=== PATIENT | female | born 1975 | race Caucasian/White ===

== ENCOUNTER → 2020-02-08 12:29 | Outpatient (BNVA) | payer OTHER, MEDICAID, SELFPAY | PROVIDERS: PCP Family Medicine; Visit Provider Physician Assistant | DX: M17.12 Unilateral primary osteoarthritis, left knee (principal) | CPT/HCPCS: 20610; J7318 ==

== ENCOUNTER → 2020-03-27 11:10 | Outpatient (BNVA) | payer OTHER, MEDICAID, SELFPAY | PROVIDERS: PCP Family Medicine; Visit Provider Physician Assistant | DX: M17.12 Unilateral primary osteoarthritis, left knee (principal) | CPT/HCPCS: 20610; J1040 ==

== ENCOUNTER 2021-01-16 15:53 | Outpatient (REF) | payer OTHER, MEDICAID, SELFPAY ==
--- NOTE | ~2021-01-16 | MM_ITS ---
EXAMINATION: MM SCREENING DIGITAL BREAST TOMOSYNTHESIS, BILATERAL CLINICAL INFORMATION: Screening. Asymptomatic. The lifetime risk of breast cancer based on the Tyrer-Cuzick Model is 7%. COMPARISON: Mammography: 01/10/2020, 10/15/2016, 09/13/2015 TECHNIQUE: Digital breast tomosynthesis is performed in both the craniocaudal and mediolateral oblique views along with computer-aided detection (CAD). Synthesized 2D images are generated from the tomosynthesis. FINDINGS: The breasts are almost entirely fatty (ACR BI-RADS breast composition Category a). There are no significant masses, abnormal calcifications, or other abnormalities. Background stromal and minor fibroglandular densities are stable. The axilla and skin contours are unremarkable. MM/MM tomosynthesis screening BI IMPRESSION: There are no significant changes from prior study. ASSESSMENT: BI-RADS 1: Negative RECOMMENDATION: Routine annual mammography screening. This patient's information was entered into a reminder system with a target due date for their next mammogram.
== END 2021-01-16 15:54 | disposition home or self-care (01) ==
LOC: HO.MAMMO 15:53
PROVIDERS: PCP Family Medicine; Visit Provider Family Medicine
DX: Z12.31 Encounter for screening mammogram for malignant neoplasm of breast (principal)
CPT/HCPCS: 77063; 77067

== ENCOUNTER 2022-05-21 07:48 | Outpatient (REF) | payer OTHER, MEDICAID, SELFPAY ==
[2022-05-21 18:56] LABS: CT PCR NOT DETECTED (Not Detect.); NG PCR NOT DETECTED (Not Detect.)
[2022-05-22 13:46] LABS: BV Int Neg Control Negative (Negative); BV Int Pos Control Positive (Positive)
[2022-05-24 03:18] LABS: HPV mRNA E6/E7 rflx Not Detected (Not Detected)
== END 2022-05-21 07:49 | disposition home or self-care (01) ==
LOC: HO.LNP 07:48
PROVIDERS: PCP Family Medicine; Visit Provider Obstetrics & Gynecology
DX: Z01.411 Encounter for gynecological examination (general) (routine) with abnormal findings (principal); Z11.51 Encounter for screening for human papillomavirus (HPV); R10.2 Pelvic and perineal pain; R31.29 Other microscopic hematuria
CPT/HCPCS: 0353U; 87086; 87480; 87510; 87624; 87660; 88142

== ENCOUNTER 2022-06-02 07:39 | Outpatient (REF) | payer OTHER, MEDICAID, SELFPAY ==
[2022-06-02 09:14] LABS: HBsAGNum1 0.25 S/CO (0.00-0.99); HIV AB/AG Nonreactive (Nonreactive); HIV Num 1 0.05 S/CO (0.00-0.99); Hepatitis B Surface Antigen Negative (Negative); Syphilis Screen Nonreactive (Nonreactive); ~HepC Num1 0.16 S/CO (0.00-0.79); ~Hepatitis C Antibody Nonreactive (Nonreactive)
== END 2022-06-02 07:40 | disposition home or self-care (01) ==
LOC: HO.LAB 07:39
PROVIDERS: PCP Family Medicine; Visit Provider Obstetrics & Gynecology
DX: R10.2 Pelvic and perineal pain (principal)
CPT/HCPCS: 36415; 86780; 86803; 87340; 87389

== ENCOUNTER → 2022-06-04 07:50 | Outpatient (BNVA) | payer OTHER, MEDICAID, SELFPAY | PROVIDERS: PCP Family Medicine; Visit Provider Obstetrics & Gynecology | DX: Z13.89 Encounter for screening for other disorder (principal) ==

== ENCOUNTER 2022-06-19 15:41 | Outpatient (REF) | payer OTHER, MEDICAID, SELFPAY ==
--- NOTE | ~2022-06-19 | CT_ITS ---
EXAMINATION: CT ABDOMEN AND PELVIS WITHOUT AND WITH CONTRAST CLINICAL INFORMATION: Microscopic hematuria. COMPARISON: CT abdomen pelvis 03/10/2014 TECHNIQUE: Multidetector volumetric imaging was performed of the abdomen and pelvis before and after the IV administration of 85 mL of Omnipaque 350 intravenous contrast. Sagittal and coronal reformatted images were obtained on the technologist's workstation. This CT examination was performed using dose optimization techniques as appropriate, variously including the following: *Automated exposure control *Adjustment of mA and/or kV according to patient size (this includes techniques or standardized protocols for targeted exams where dose is matched to indication/reason for exam; i.e. extremities or head) *Use of iterative reconstruction technique DLP: 1700 mGy-cm FINDINGS: LUNG BASES: The visualized lung bases are unremarkable. LIVER, GALLBLADDER, AND BILIARY TREE: There is diffuse low attenuation of liver parenchyma due to fatty change. Liver is enlarged. Right lobe of liver measuring 24 cm superior-inferior. No focal liver lesion or intrahepatic bile duct dilatation. Status post cholecystectomy. PANCREAS: Unremarkable SPLEEN: Spleen mildly enlarged measuring 14 cm. ADRENAL GLANDS: Unremarkable KIDNEYS AND URETERS: Right kidney: Mild hydronephrosis of right kidney. There is mild hydroureter of the proximal right ureter. The right ureter is compressed by the enlarged uterus at the right side of the pelvis causing mild hydronephrosis. There is a 1 mm stone in the upper pole the right kidney. There is no ureteral stone. There is no renal mass. Left kidney: Cortical cyst lower pole left kidney measuring 1.6 cm. No follow-up imaging is recommended for simple renal cyst. No hydronephrosis. No renal or ureteral calculus. BLADDER: Unremarkable GASTROINTESTINAL TRACT: No acute abnormality. There is no bowel wall thickening /edema. There is no bowel obstruction. There is a moderate volume of stool in the colon. The appendix is normal . The small bowel loops are unremarkable. The stomach is normal. There is no hiatal hernia. ABDOMINAL WALL: No significant hernia is appreciated. LYMPH NODES: Normal VASCULAR: Unremarkable PELVIC VISCERA: Uterus is lobular and enlarged consistent with uterine fibroids. There is a faintly peripherally calcified hypodense mass at the right side of the fundus consistent with fibroid measuring 8 cm. No adnexal abnormality. No fluid in the cul-de-sac. OSSEOUS STRUCTURES: Unremarkable CT/CT abdomen pelvis wo/w IV con IMPRESSION: 1. Mild hydronephrosis of right kidney due to compression of the right ureter by the enlarged uterus at the right side of the pelvis. 2. 1 mm stone upper pole right kidney. No ureteral stone. No renal mass. 3. Hepatosplenomegaly. Diffuse fatty change of liver. 4. Enlarged fibroid uterus. 5. Status post cholecystectomy. Fleischner guidelines were followed.
[2022-06-19] MEDS: iohexoL 350 MG/ML 100 ML INFUS..BTL IV (16:26)
== END 2022-06-19 15:42 | disposition home or self-care (01) ==
LOC: HO.CT 15:41
PROVIDERS: Visit Provider Obstetrics & Gynecology
DX: R31.29 Other microscopic hematuria (principal)
CPT/HCPCS: 74178; Q9967

== ENCOUNTER 2022-06-23 07:42 | Outpatient (REF) | payer OTHER, MEDICAID, SELFPAY ==
--- NOTE | ~2022-06-23 | MM_ITS ---
EXAMINATION: MM SCREENING DIGITAL BREAST TOMOSYNTHESIS, BILATERAL CLINICAL INFORMATION: Screening. Asymptomatic. The lifetime risk of breast cancer based on the Tyrer-Cuzick Model is 4%. COMPARISON: Mammography: 01/16/2021, 01/10/2020, 10/15/2016 TECHNIQUE: Digital breast tomosynthesis is performed in both the craniocaudal and mediolateral oblique views along with computer-aided detection (CAD). Synthesized 2D images are generated from the tomosynthesis. Additional bilateral CC views are provided. FINDINGS: The breasts are almost entirely fatty (ACR BI-RADS breast composition Category a). Background stromal markings are similar to prior studies. No developing density or architectural changes. There are no significant masses, abnormal calcifications, or other abnormalities. The axilla are unremarkable. MM/MM tomosynthesis screening BI IMPRESSION: No mammographic evidence of malignancy. ASSESSMENT: BI-RADS 1: Negative RECOMMENDATION: Routine annual mammography screening. This patient's information was entered into a reminder system with a target due date for their next mammogram.
== END 2022-06-23 07:43 | disposition home or self-care (01) ==
LOC: HO.MAMMO 07:42
PROVIDERS: PCP Family Medicine; Visit Provider Obstetrics & Gynecology
DX: Z12.31 Encounter for screening mammogram for malignant neoplasm of breast (principal)
CPT/HCPCS: 77063; 77067

== ENCOUNTER → 2022-06-26 08:01 | Outpatient (BNVA) | payer OTHER, MEDICAID, SELFPAY | PROVIDERS: Visit Provider Obstetrics & Gynecology | DX: Z13.89 Encounter for screening for other disorder (principal) ==

== ENCOUNTER → 2022-08-08 14:47 | Outpatient (BNVA) | payer OTHER, MEDICAID, SELFPAY | PROVIDERS: PCP Family Medicine; Visit Provider Urology | DX: R31.29 Other microscopic hematuria (principal); N13.30 Unspecified hydronephrosis; N20.0 Calculus of kidney | CPT/HCPCS: 51798 ==

== ENCOUNTER → 2022-09-15 15:16 | Outpatient (BNVA) | payer OTHER, MEDICAID, SELFPAY | PROVIDERS: PCP Family Medicine; Visit Provider Urology | DX: R31.29 Other microscopic hematuria (principal); N13.2 Hydronephrosis with renal and ureteral calculous obstruction | CPT/HCPCS: 52000 ==

== ENCOUNTER 2023-02-05 07:50 | Outpatient (REF) | payer OTHER, MEDICAID, SELFPAY ==
[2023-02-05 09:31] LABS: Alanine Aminotransferase 50 U/L (0-31); Alkaline Phosphatase 96 U/L (39-117); Anion Gap 14 (12-20); Aspartate Amino Transferase 38 U/L (5-31); Bilirubin Total 0.2 mg/dL (0.0-1.0); Blood Urea Nitrogen 9 mg/dL (9-16); Carbon Dioxide 23 mmol/L (22-29); Chloride 103 mmol/L (96-108); Cholesterol 174 mg/dL (<200); Estimated Glomerular Filt Rate > 60; Glucose Random 220 mg/dL (60-115); HDL Cholesterol 33 mg/dL (>40); Potassium 3.9 mmol/L (3.3-5.1); Sodium 136 mmol/L (135-145); Total Protein 7.6 g/dL (6.5-8.0); Triglycerides 428 mg/dL (<150)
[2023-02-05 09:37] LABS: TSH reflex Free T4 2.21 uIU/mL (0.32-4.0)
[2023-02-05 09:41] LABS: Reflex LDLD? Yes
[2023-02-05 09:52] LABS: Vitamin B12 654 pg/mL (200-900)
[2023-02-07 03:09] LABS: LDL Cholesterol Direct 78 mg/dL (<100)
== END 2023-02-05 07:51 | disposition home or self-care (01) ==
LOC: HO.LAB 07:50
PROVIDERS: PCP Family Medicine; Visit Provider Family Medicine
DX: E11.69 Type 2 diabetes mellitus with other specified complication (principal)
CPT/HCPCS: 36415; 80053; 80061; 82607; 82746; 83721; 84443

== ENCOUNTER 2023-02-17 09:51 | Outpatient (REF) | payer OTHER, MEDICAID, SELFPAY ==
--- NOTE | ~2023-02-17 | US_ITS ---
EXAMINATION: US RETROPERITONEAL COMPLETE (RENAL) CLINICAL INFORMATION: Unspecified hydronephrosis. COMPARISON: CT abdomen and pelvis 06/19/2022. TECHNIQUE: Real-time imaging of the kidneys and bladder. Limited visualization due to bowel gas. FINDINGS: RIGHT KIDNEY: 13.7 x 4.0 x 6.6 cm (SAG x AP x TRV). No hydronephrosis. Right renal lower pole 0.3 cm calculus. Renal cortical thickness is normal. Limited visualization. LEFT KIDNEY: 13.8 x 4.5 x 5.9 cm (SAG x AP x TRV). No hydronephrosis. No renal calculi. Renal cortical thickness is normal. Limited visualization. 2.3 x 1.8 x 1.6 cm left renal midpole cyst with benign features. There is no indication for followup imaging. BLADDER: Well distended. Bilateral ureteral jets are demonstrated. Prevoid bladder volume is 200 mL. Postvoid bladder volume is 15.2 mL. US/US retroperitoneal comp IMPRESSION: Right renal 0.3 cm lower pole calculus. No hydronephrosis.
== END 2023-02-17 09:52 | disposition home or self-care (01) ==
LOC: HO.US 09:51
PROVIDERS: PCP Family Medicine; Visit Provider Urology
DX: N13.30 Unspecified hydronephrosis (principal); R31.29 Other microscopic hematuria; N20.0 Calculus of kidney
CPT/HCPCS: 76770

== ENCOUNTER 2023-03-16 15:28 | Outpatient (AMB) | payer OTHER, MEDICAID, SELFPAY ==
--- NOTE | 2023-03-16 15:39 | A.OFFVIS_ITS ---
Intake Intake Visit Reasons: 6m/US Intake Note: Patient presents today for a 6mo follow-up and US Results: Completed on 02/17/2023 Meds- None Allergies to Antibiotic- No Known Allergies Blood Thinner- None Team Lead Required: Yes Information Interpreted: non-clinical & clinical Accompanied by: Self / Same As Patient Allergies acetaminophen [From Percocet] Allergy (Mild, Verified 03/16/23 15:41) Stomach Upset oxycodone [From Percocet] Allergy (Mild, Verified 03/16/23 15:41) Stomach Upset HPI HPI Comments History of Present Illness Details Kandace is a 47-year-old female who presents today to the office for a follow-up. 03/16/2023? She is followed today for US results. She was last seen by me on 09/15/2022 for hydronephrosis, right. She was advised to follow-up in 6 months with a renal US to reevaluate. I discussed renal US results--02/17/2023--US results reviewed ? No Hydronephrosis, 3 mm right kidney stone. Review of charts: Last visit: 09/15/2022-- The patient is scheduled for AIRCRAFT STRUCTURAL FITTER surgery for her fibroid tumor October 30 There is also finding of an abnormality on her ovary that they will be evaluating. I discussed with her that as the uterus is pressing on the right ureter she may need a ureteral stent during the digital specialist procedure that will be facilitated by the digital specialist specialist at [facility] and I will follow-up with them. 09/15/22--Evaluation today-- Blood: 10 Er y/uL, leukocytes: negative; Cytoscopy fi ndings-- normal bladder mucosa. Imaging: CTAP results reviewed--06/19/22-- small renal stone on the right side. 03/16/2023: Plan: Hydronephrosis resolve d. Will monitor the kidney stone Follow-up in one year with renal US. 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 Sexual orientation: Straight/Heterosexual Gender identity: Female Review of Systems Const All systems reviewed & are unremarkable except as noted in HPI and below Reports no additional complaints Eyes Reports no additional complaints ENT Reports no additional complaints Card Denies dyspnea Resp Denies cough and Denies dyspnea GI Reports no additional complaints Reports no additional complaints Musc Reports no additional complaints Skin/Breast Denies rash and Denies unusual bruising Neuro Reports no additional complaints Psych Reports no additional complaints Endo Reports no additional complaints Anton/Lymph Reports no additional complaints Aller/Immun Reports no additional complaints Results AMB Urinalysis, Automated UA Leukoctes 70 Robby/uL Last Edit by GUTIERREZ Jones on 03/16/23 15:50 1+ Awa Cotton 03/16/23 15:50 UA Nitrite Negative Last Edit by GUTIERREZ Jones on 03/16/23 15:50 UA Urobilinogen 0.2 mg/dL Last Edit by GUTIERREZ Jones on 03/16/23 15:5 0 UA Protein 0 mg/dL Last Edit by GUTIERREZ Jones on 03/16/23 15:50 UA pH 6.0 Last Edit by GUTIERREZ Jones on 03/16/23 15:50 UA Blood 0 Sawyer/uL Last Edit by GUTIERREZ Jones on 03/16/23 15:50 UA Specific [place] 1.015 Last Edit by GUTIERREZ Jones on 03/16/23 15: 50 UA Ketone Negative Last Edit by GUTIERREZ Jones on 03/16/23 15:50 UA Bilirubin 0 mg/dL Last Edit by MILAGROS JonesBuck on 03/16/23 15:50 UA Glucose 500 mg/dL Last Edit by Awa Cotton GUTIERREZ on 03/16/23 15:50 2+ Awa Cotton 03/16/23 15:50 Results Reviewed Results Reviewed: Laboratory Last Values Urine pH (Auto) 6.0 03/16/23 15:44 Specific [place] (Auto) 1.015 03/16/23 15:44 Urine Protein (Auto) 0 mg/dL 03/16/23 15:44 Glucose (UA)(Auto) 500 mg/dL 03/16/23 15:44 Urine Ketones (Auto) Negative 03/16/23 15:44 Urine Blood (Auto) 0 Sawyer/uL 03/16/23 15:44 Urine Nitrite (Auto) Negative 03/16/23 15:44 Urine Bilirubin (Auto) 0 mg/dL 03/16/23 15:44 Urine Urobilinogen (Auto) 0.2 mg/dL 03/16/23 15:44 Leukocyte Esterase (Auto) 70 Robby/uL 03/16/23 15:44 Date of Service: 02/17/23 EXAMINATION: US RETROPERITONEAL COMPLETE (RENAL) CLINICAL INFORMATION: Unspecified hydronephrosis. COMPARISON: CT abdomen and pelvis 06/19/2022. FINDINGS: RIGHT KIDNEY: 13.7 x 4.0 x 6.6 cm (SAG x AP x TRV). No hydronephrosis. Right renal lower pole 0.3 cm calculus. Renal cortical thickness is normal. Limited visualization. LEFT KIDNEY: 13.8 x 4.5 x 5.9 cm (SAG x AP x TRV). No hydronephrosis. No renal calculi. Renal cortical thickness is normal. Limited visualization. 2.3 x 1.8 x 1.6 cm left renal midpole cyst with benign features. There is no indication for followup imaging. BLADDER: Well distended. Bilateral ureteral jets are demonstrated. Prevoid bladder volume is 200 mL. Postvoid bladder volume is 15.2 mL. IMPRESSION: Right renal 0.3 cm lower pole calculus. No hydronephrosis. Assessment & Plan Assessment & Plan (1) Right kidney stone: Code(s): N20.0 - Calculus of kidney (2) Hydronephrosis, right: Code(s): N13.30 - Unspecified hydronephrosis Plan We will monitor the kidney stone Follow-up in one year with renal US. Orders: Orders AMB Urinalysis Automated 03/16/23 Z13.9 - Encounter for screening, unspecified Patient Instructions: The patient had an opportunity to ask questions regarding treatment plan. All questions were answered. Imaging, Laboratory studies and physical exam results were discussed and reviewed in detail. No major barriers to understanding were identified. The patient expressed understanding and agreement with the above treatment plan. The patient is aware they should contact our office by phone for worsening of their current condition or the appearance of new symptoms. Compliance is encouraged with any medications and followup testing that is ordered. It is a privilege to be allowed the opportunity to participate in the urologic care of your patient. If you have any questions or concerns regarding treatment for the above conditions please do not hesitate to contact me. The office telephone contact is [phone]. This note is constructed in part using voice recognition software. While every effort has been made to ensure accuracy flight manager errors may have been included. Yours sincerely, Almaz Blancas MD Coding Level of Care Code Est Pt Level 4 (45072) Diagnoses Right kidney stone N20.0 Hydronephrosis, right N13.30
== END 2023-03-16 16:00 | disposition home or self-care (01) ==
PROVIDERS: Visit Provider Urology
DX: N20.0 Calculus of kidney (principal); N13.30 Unspecified hydronephrosis
CPT/HCPCS: 99214

== ENCOUNTER → 2023-03-16 15:28 | Outpatient (BNVA) | payer OTHER, MEDICAID, SELFPAY | PROVIDERS: Visit Provider Urology | DX: N20.0 Calculus of kidney (principal) | CPT/HCPCS: 81003 ==

== ENCOUNTER 2023-04-16 07:33 | Outpatient (REF) | payer OTHER, MEDICAID, SELFPAY ==
[2023-04-16 09:29] LABS: Creatinine Urine 110.45 mg/dL; Microalbum/Creatinine Ratio Ur 14.4 ug/mg cr (<30)
== END 2023-04-16 07:34 | disposition home or self-care (01) ==
LOC: HO.LAB 07:33
PROVIDERS: PCP Family Medicine; Visit Provider Family Medicine
DX: E11.65 Type 2 diabetes mellitus with hyperglycemia (principal)
CPT/HCPCS: 82043; 82570

== ENCOUNTER 2023-04-20 08:00 | Outpatient (REF) | payer OTHER, MEDICAID, SELFPAY ==
[2023-04-24 11:29] LABS: Cortisol Free, 24 Hr Urine 4.8 mcg/24 h (4.0-50.0); Total Volume, 24 Hr Urine 2975 mL
== END 2023-04-20 08:01 | disposition home or self-care (01) ==
LOC: HO.LNP 08:00
PROVIDERS: Visit Provider Family Medicine
DX: E24.9 Cushing's syndrome, unspecified (principal); R73.9 Hyperglycemia, unspecified
CPT/HCPCS: 82530

== ENCOUNTER 2023-05-25 07:57 | Outpatient (AMB) | payer OTHER, MEDICAID, SELFPAY ==
[2023-05-25 07:58] VITALS: BP 116/72; BMI 37.9
--- NOTE | 2023-05-25 07:58 | A.OFFVIS_ITS ---
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 Intake Note: no concerns Heel Top Lift Splitter Required: Yes Heel Top Lift Splitter Language: Room Maid Name: Gracie WHITLEY Information Interpreted: non-clinical & clinical Assistant Professor Of Anthropology: Assistant Professor Of Anthropology Present (Gracie WHITLEY) Accompanied by: Self / Same As Patient Allergies acetaminophen [From Percocet] Allergy (Mild, Verified 05/25/23 08:03) Stomach Upset oxycodone [From Percocet] Allergy (Mild, Verified 05/25/23 08:03) Stomach Upset Is last menstrual period known: No (hysterectomy) HPI HPI Comments History of Present Illness0 Details Presenting for annual exam. No complaints. 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 Sexual orientation: Straight/Heterosexual Gender identity: Female Female Reproductive History Menstrual Menopause type: surgical Total pregnancies: 2 Full term: 2 Number of Living Children: 2 Date of last pap smear: 05/21/22 Date of Mammogram: 06/23/22 Review of Systems Const All systems reviewed & are unremarkable except as noted in HPI and below Card Reports as per HPI and Reports no additional complaints Resp Reports as per HPI and Reports no additional complaints GI Reports as per HPI and Reports no additional complaints Reports as per HPI Physical Exam Vital Signs: BMI result Body Mass Index 37.9 Const General: cooperative, healthy appearing and comfortable General: Yes bladder normal to palpation External Female Exam: No lesion Speculum Exam - Vagina: normal appearance of the vagina, normal vaginal discharge and not erythematous Speculum Exam - Cervix: Cervix absent Bimanual exam- vagina & uterus: bladder normal to palpation and uterus absent Bimanual Exam- Adnexa, other: Other (No masses detected) Assessment & Plan Assessment & Plan (1) Well woman exam: Code(s): Z01.419 - Encounter for gynecological examination (general) (routine) without abnormal findings Plan: Co testing not indicated , the patient has no history of abnormal Pap smears, the patient is status post hysterectomy for myomas. Counseled the patient about the recommended dietary allowance of 1200 mg of Calcium & 600 IU of vitamin D. Mammogram ordered. The patient was referred to GI for screening colonoscopy . The patient was instructed to perform monthly self-breast exams and schedule annual exam in a year. All questions answered and the patient verbalized understanding. Orders: Orders MM tomosynthesis screening BI Today Z12.31 - Encounter for screening mammogram for malignant neoplasm of breast Referrals Gastroenterology Referral Z12.11 - Encounter for screening for malignant sujatha plasm of colon Coding Level of Care Code Est Pt Prev Care 40-64y(99507) Diagnoses Well woman exam Z01.419
== END 2023-05-25 08:15 | disposition home or self-care (01) ==
PROVIDERS: Visit Provider Obstetrics & Gynecology
DX: Z01.419 Encounter for gynecological examination (general) (routine) without abnormal findings (principal)
CPT/HCPCS: 99396

== ENCOUNTER → 2023-05-25 07:57 | Outpatient (BNVA) | payer OTHER, MEDICAID, SELFPAY | PROVIDERS: Visit Provider Obstetrics & Gynecology ==

== ENCOUNTER 2023-06-29 07:58 | Outpatient (REF) | payer OTHER, MEDICAID, SELFPAY | END 2023-06-29 07:59 | disposition home or self-care (01) | LOC: HO.MAMMO 07:58 | PROVIDERS: PCP Family Medicine; Visit Provider Family Medicine | DX: Z12.31 Encounter for screening mammogram for malignant neoplasm of breast (principal) | CPT/HCPCS: 77063; 77067 ==

== ENCOUNTER → 2023-06-29 08:15 | Outpatient (BNV) | payer OTHER, MEDICAID, SELFPAY | PROVIDERS: PCP Family Medicine; Visit Provider Radiology Diagnostic Radiology | DX: Z12.31 Encounter for screening mammogram for malignant neoplasm of breast (principal) | CPT/HCPCS: 77063; 77067 ==

== ENCOUNTER 2023-08-04 08:15 | Outpatient (AMB) | payer OTHER, MEDICAID, SELFPAY ==
--- NOTE | 2023-08-04 08:19 | MHC.OFFVIS ---
Intake Vital Signs 08/04/23 08:29 Height 5 ft Weight 178 lb 9.191 oz BMI 34.9 BP 115/63 Blood Pressure Location Lt brachial Position Sitting Pulse 81 Intake Visit Reasons: colonoscopy screening Intake Note: Suma presents in the office as a new patient colonoscopy screening. CC: No concerns just here for a colonoscopy. Allergies acetaminophen [From Percocet] Allergy (Mild, Verified 08/04/23 08:29) Stomach Upset oxycodone [From Percocet] Allergy (Mild, Verified 08/04/23 08:29) Stomach Upset HPI colonoscopy screening HPI Details 48 year old? female here today for pre colonoscopy screening.? Patient had colonoscopy in 2014 as well as upper endoscopy. No polyps found. Patient was diagnosed with gastritis and was started on PPI. Patient has been on PPI ever since. Currently she is on pantoprazole 40 mg daily. Her symptoms for the most part are suppressed. Patient denies any gastrointestinal symptoms in the past or at present.? However patient does admit to have occasional constipation. Patient states that if she drinks water and takes MiraLax she moves her bowels well. Denies any personal or family history of gastrointestinal disease, colon polyps, or cancer.? Denies history of difficulty with sedation or anesthesia in the past.? History of sleep apnea uses CPAP.? Denies any history of cardiac, renal, pulmonary, or hepatic disease.?? No history of infectious? diseases like hepatitis A, B, C, HIV or tuberculosis.? Patient is not on any anticoagulation therapy. 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 Sexual orientation: Straight/Heterosexual Gender identity: Female Review of Systems Const Denies weight gain and Denies weight loss ENT Reports no additional complaints, Denies dysphagia and Denies odynophagia Card Reports no additional complaints Resp Reports no additional complaints GI Denies abdominal pain, Denies belching, Denies melena, Denies bloating, Denies change in bowel habits, Denies dysphagia, Denies excessive flatus, Denies dyspepsia, Denies heartburn, Denies diarrhea, Denies loose stools, Denies nausea, Denies odynophagia and Denies vomiting Musc Reports no additional complaints Neuro Reports no additional complaints Psych Reports no additional complaints Endo Reports no additional complaints Physical Exam Vital Signs: Last Vital Signs Pulse 81 08/04/23 08:29 BP 115/63 08/04/23 08:29 BMI result Body Mass Index 34.9 Const General: healthy appearing, no acute distress and well developed Nutritional Appearance: well nourished Orientation/consciousness: patient oriented x3 Resp Effort & Inspection: normal respiratory effort, able to speak in complete sentences, no tracheal deviation and symmetric chest movement Auscultation: clear to auscultation bilaterally Cardio Rate: regular rate GI Inspection: Yes normal to inspection and No distended Palpation (GI): Soft to palpation, not firm, nontender and No hepatosplenomegaly present Auscultation: normal bowel sounds General: Yes no CVA tenderness Back/Spine/Pelvis Back: no CVA tenderness Skin General skin exam: elasticity normal, turgor normal and dry skin Neuro General: patient oriented x3 Psych Appearance: grossly normal Mental Status: mental status grossly normal Assessment & Plan Assessment & Plan (1) Screen for colon cancer: Code(s): Z12.11 - Encounter for screening for malignant neoplasm of colon (2) GERD (gastroesophageal reflux disease): Code(s): K21.9 - Gastro-esophageal reflux disease without esophagitis Qualifiers: Esophagitis presence: esophagitis presence not specified Qualified Code(s): K21.9 - Gastro-esophageal reflux disease without esophagitis (3) Constipation: Code(s): K59.00 - Constipation, unspecified Qualifiers: Constipation type: slow transit constipation Qualified Code(s): K59.01 - Slow transit constipation Plan Patient denies any cardiac or respiratory symptoms. Occasional constipation, uses MiraLax and drinks more water. Patient was encouraged to increase fluid intake and activity to promote better bowel motility. Patient will take Dulcolax every evening for 1 week before procedure with 4 tablets day before at noon and split MiraLax prep. ?Patient is on pantoprazole. Long history of PPI use will send her for upper endoscopy. Patient occasionally will have acid reflux, however for the most part her symptoms are suppressed. Denies any issues with anesthesia in the past.? History of sleep apnea using CPAP.? No history infectious diseases in the past or present.? Not on any anticoagulation therapy.? No family or personal history of colon cancer or polyps.? Patient denies melena, hematochezia, unintentional weight loss or ribbon like stools.? Discussed at length the pre-procedure,? prep, diet & medications as well as what to expect prior, during and after the procedure.?? Stressed the importance of good bowel prep. ?Recommended the use of Vaseline or Calmoseptine OTC & baby wipes with bowel movements to promote comfort.? ?Patient verbalizes understanding and agrees to plan of care.? She was given the opportunity to ask questions and all questions answered.? We will see her after the procedure.? Medications: New bisacodyl (Dulcolax (bisacodyl)) Start taking 2 tablet every night 7 days before the procedure and 1 day before procedure take 4 tablets at noon time followed by MiraLax prep 10 mg (2 x 5 mg) PO BEDTIME 16 tabs 0RF Z12.11 - Encounter for screening for malignant neoplasm of colon polyethylene glycol 3350 (Miralax) As directed by gastroenterology department at [facility] 238 grams PO ONCE 238 grams 0RF Z12.11 - Encounter for screening for malignant neoplasm of colon Coding Level of Care Code New Pt Level 3 (58704) Diagnoses Screen for colon cancer Z12.11 Gastroesophageal reflux disease, unspecified whether esophagitis present K21.9 Esophagitis presence: esophagitis presence not specified Slow transit constipation K59.01 Constipation type: slow transit constipation Time Spent (min) 40 Comment 30 minutes spent with patient and additional 10 minutes spent reviewing her records
[2023-08-04 08:29] VITALS: BP 115/63; PULSE 81; BMI 34.9
== END 2023-08-04 08:56 | disposition home or self-care (01) ==
PROVIDERS: PCP Family Medicine; Visit Provider Nurse Practitioner Family
DX: K21.9 Gastro-esophageal reflux disease without esophagitis (principal); K59.01 Slow transit constipation; Z12.11 Encounter for screening for malignant neoplasm of colon
CPT/HCPCS: 99203

== ENCOUNTER → 2023-08-04 08:15 | Outpatient (BNVA) | payer OTHER, MEDICAID, SELFPAY | PROVIDERS: PCP Family Medicine; Visit Provider Nurse Practitioner Family ==

== ENCOUNTER 2024-02-11 14:48 | Outpatient (REF) | payer OTHER, MEDICAID, SELFPAY | END 2024-02-11 14:49 | disposition home or self-care (01) | LOC: HO.US 14:48 | PROVIDERS: PCP Family Medicine; Visit Provider Urology | DX: N20.0 Calculus of kidney (principal) | CPT/HCPCS: 76775 ==

== ENCOUNTER 2024-02-13 10:35 | Outpatient (REF) | payer OTHER, MEDICAID, SELFPAY ==
[2024-02-13 10:45] LABS: MANUAL DIFF FLAG NO
[2024-02-13 11:01] LABS: Basophils Absolute Auto 0.1 X10*3/uL (0.0-0.2); Basophils Percent Auto 1.2 % (0-2); Eosinophils Absolute Auto 0.1 X10*3/uL (0.0-0.4); Hematocrit 40.9 % (37.0-47.0); Hemoglobin 13.4 g/dl (12.0-16.0); Imm Gran Abs Auto 0.03 X10*3/uL (0.00-0.03); Imm Gran Pct Auto 0.4 % (0.0-0.4); Lymphocytes Absolute Auto 2.8 X10*3/uL (1.2-4.9); Lymphocytes Percent Auto 40.3 % (20-40); Mean Corpuscular HGB Conc 32.8 g/dl (31.0-35.0); Mean Corpuscular Hemoglobin 26.1 pg (27.0-33.0); Mean Corpuscular Volume 79.7 fL (80.0-98.0); Mean Platelet Volume 9.4 fL (9.4-12.3); Monocytes Absolute Auto 0.4 X10*3/uL (0.1-1.2); Monocytes Percent Auto 5.9 % (2-11); Neutrophils Absolute Auto 3.5 x10*3/uL (2.0-8.3); Neutrophils Percent Auto 50.2 % (45-73); Platelet Count 296 X10*3/uL (160-400); Red Blood Count 5.13 X10*6/uL (4.20-5.50); White Blood Count 6.9 X10*3/uL (4.8-10.8)
[2024-02-13 11:51] LABS: Alanine Aminotransferase 16 U/L (0-31); Albumin Level 3.8 g/dL (3.5-5.0); Alkaline Phosphatase 79 U/L (39-117); Anion Gap 11 (12-20); Aspartate Amino Transferase 17 U/L (5-31); Bilirubin Total 0.3 mg/dL (0.0-1.0); Blood Urea Nitrogen 15 mg/dL (9-16); Calcium 9.4 mg/dL (8.4-10.2); Carbon Dioxide 25 mmol/L (22-29); Chloride 107 mmol/L (96-108); Cholesterol 201 mg/dL (<200); Estimated Glomerular Filt Rate > 60; Glucose Random 130 mg/dL (60-115); HDL Cholesterol 40 mg/dL (>40); LDL Cholesterol Calculated 116 mg/dL (<100); Potassium 3.8 mmol/L (3.3-5.1); Sodium 139 mmol/L (135-145); Total Protein 6.9 g/dL (6.5-8.0); Triglycerides 228 mg/dL (<150)
[2024-02-13 11:52] LABS: Creatinine Urine 123.69 mg/dL; Microalbum/Creatinine Ratio Ur 11.3 ug/mg cr (<30)
[2024-02-13 12:08] LABS: TSH reflex Free T4 1.27 uIU/mL (0.32-4.0)
[2024-02-13 12:14] LABS: Folate 9.1 ng/mL (> or = 4.0); Vitamin B12 460 pg/mL (200-900)
[2024-02-13 12:49] LABS: Reflex LDLD? No
== END 2024-02-13 10:36 | disposition home or self-care (01) ==
LOC: HO.LAB 10:35
PROVIDERS: PCP Family Medicine; Visit Provider Family Medicine
DX: E11.69 Type 2 diabetes mellitus with other specified complication (principal); E11.65 Type 2 diabetes mellitus with hyperglycemia; K76.0 Fatty (change of) liver, not elsewhere classified; I10 Essential (primary) hypertension; E66.09 Other obesity due to excess calories; E78.1 Pure hyperglyceridemia; E78.5 Hyperlipidemia, unspecified; R74.01 Elevation of levels of liver transaminase levels; Z98.84 Bariatric surgery status
CPT/HCPCS: 36415; 80053; 80061; 82043; 82570; 82607; 82746; 84443; 85025

== ENCOUNTER 2024-03-16 14:58 | Outpatient (AMB) | payer OTHER, MEDICAID, SELFPAY ==
--- NOTE | 2024-03-16 14:59 | A.OFFVIS_ITS ---
Intake Visit Reasons: 1y/US(US pending) Intake Note: Patient presents today for a 1Y follow-up/US Meds- None Allergies to Antibiotic- No Known Allergies Blood Thinner- None Public Works Supervisor Required: Yes Information Interpreted: non-clinical & clinical Accompanied by: Self / Same As Patient Allergies acetaminophen [From Percocet] Allergy (Mild, Verified 03/16/24 15:00) Stomach Upset oxycodone [From Percocet] Allergy (Mild, Verified 03/16/24 15:00) Stomach Upset HPI Comments Details: 03/17/24--Kandace is a 47-year-old female who presents today Telehealth follow- up. Reviewed renal US--02/11/24--Previously seen right lower pole calculus is not seen on the current study. Review of charts: 03/16/2023? She is followed today for US results. She was last seen by me on 09/15/2022 for hydronephrosis, right. She was advised to follow-up in 6 months with a renal US to reevaluate. I discussed renal US results--02/17/2023--US results reviewed ? No Hydronephrosis, 3 mm right kidney stone. Last visit: 09/15/2022-- The patient is scheduled for TRANSITION ASSISTANT surgery for her fibroid tumor October 30 There is also finding of an abnormality on her ovary that they will be evaluating. I discussed with her that as the uterus is pressing on the right ureter she may need a ureteral stent during the leather goods sales representative procedure that will be facilitated by the leather goods sales representative specialist at [facility] and I will follow-up with them. 09/15/22--Evaluation today-- Blood: 10 Sawyer/uL, leukocytes: negative; Cytoscopy findings-- normal bladder mucosa. Imaging: CTAP results reviewed--06/19/22-- small renal stone on the right side. 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 Sexual orientation: Straight/Heterosexual Gender identity: Female Telehealth Telehealth Telehealth Platform: Telephone Location of provider rendering services: practice address Location of patient: address on file Patient Identification confirmed using: Name, : Yes Telehealth method: voice only Patient verbally consented to treatment: Yes Patient verbally consented to billing insurance company: Yes Patient informed of any privacy concerns related to visit: Yes Minutes spent on Phone/Video with Pt.: 14 Results Reviewed Results Reviewed: Date of Service: 02/11/24 US RETROPERITONEAL LIMITED (RENAL ONLY) CLINICAL INFORMATION: Calculus of kidney. COMPARISON: Ultrasound retroperitoneal 02/17/2023. CT abdomen and pelvis 06/19/2022. TECHNIQUE: Real-time imaging of the kidneys. FINDINGS: RIGHT KIDNEY: 12.4 x 5.0 x 5.3 cm (SAG x AP x TRV). The kidney is normal in size, contour, and echogenicity. Renal cortical thickness is normal. No calculi or focal parenchymal lesions. Previously seen calculi in the lower pole at the time of the prior ultrasound is not seen on the current study. No hydronephrosis. LEFT KIDNEY: 12.1 x 4.9 x 5.6 cm (SAG x AP x TRV). The kidney is normal in size, contour, and echogenicity. Renal cortical thickness is normal. No renal calculi or hydronephrosis. A benign lower pole 1.7 cm Bosniak class I renal cyst is again noted which requires no additional imaging or follow up. No solid renal masses are seen. IMPRESSION: Negative exam. Previously seen right lower pole calculus is not seen on the current study. Date of Service: 02/17/23 EXAMINATION: US RETROPERITONEAL COMPLETE (RENAL) CLINICAL INFORMATION: Unspecified hydronephrosis. COMPARISON: CT abdomen and pelvis 06/19/2022. FINDINGS: RIGHT KIDNEY: 13.7 x 4.0 x 6.6 cm (SAG x AP x TRV). No hydronephrosis. Right renal lower pole 0.3 cm calculus. Renal cortical thickness is normal. Limited visualization. LEFT KIDNEY: 13.8 x 4.5 x 5.9 cm (SAG x AP x TRV). No hydronephrosis. No renal calculi. Renal cortical thickness is normal. Limited visualization. 2.3 x 1.8 x 1.6 cm left renal midpole cyst with benign features. There is no indication for followup imaging. BLADDER: Well distended. Bilateral ureteral jets are demonstrated. Prevoid bladder volume is 200 mL. Postvoid bladder volume is 15.2 mL. IMPRESSION: Right renal 0.3 cm lower pole calculus. No hydronephrosis. Assessment & Plan Assessment & Plan (1) Hydronephrosis, right: Comment: resolved Code(s): N13.30 - Unspecified hydronephrosis Category: Medical (2) History of kidney stones: Code(s): Z87.442 - Personal history of urinary calculi Category: Medical Plan Will monitor kidneys. Follow-up in one year with renal US. Patient Instructions: The patient had an opportunity to ask questions regarding treatment plan. The patient expressed understanding and agreement with the above treatment plan. The patient is aware they should contact our office by phone for worsening of their current condition or the appearance of new symptoms. Compliance is encouraged with any medications and followup testing that is ordered. It is a privilege to be allowed the opportunity to participate in the urologic care of your patient. If you have any questions or concerns regarding treatment for the above conditions please do not hesitate to contact me. The office telephone contact is [phone]. This note is constructed in part using voice recognition software. While every effort has been made to ensure accuracy dispatcher chief oil errors may have been included. Yours sincerely, Almaz Blancas MD Coding Level of Care Code Tele Est Pt Level 3 (27252) Diagnoses Hydronephrosis, right N13.30 History of kidney stones Z87.442
== END 2024-03-16 16:30 | disposition home or self-care (01) ==
LOC: HO.HUSH 14:58
PROVIDERS: PCP Family Medicine; Visit Provider Urology
DX: N13.30 Unspecified hydronephrosis (principal); Z87.442 Personal history of urinary calculi
CPT/HCPCS: 99442

== ENCOUNTER → 2024-07-06 07:45 | Outpatient (BNV) | payer OTHER, MEDICAID, SELFPAY | PROVIDERS: PCP Family Medicine; Visit Provider Internal Medicine | DX: Z12.31 Encounter for screening mammogram for malignant neoplasm of breast (principal) | CPT/HCPCS: 77063; 77067 ==

== ENCOUNTER 2024-07-06 07:49 | Outpatient (REF) | payer OTHER, MEDICAID, SELFPAY ==
--- OUTSIDE RECORDS SUMMARY | 2024-07-06 07:53 | XMS_ITS | Encounter Summary ---
Author Organization [employer] Address [address] [place] [address] Care Team Providers Care 911 Operator Name Role Phone Lulú Painting MD Primary Care Provider [phone] Encounter Details Date Type Department Care Team (Late st Contact Info) Description 02/06/2023 Orders Only [facility] MEDICINE [address] [place], [place] [phone] Lulú Painting MD [address] [place], [place] [phone] Dyslipidemia (Primary Dx) Social History Tobacco Use Types Packs/Day Years Used Date Smoking Tobacco: Never Passive Smoke Exposure: Never Smokeless Tobacco: Never Depression Answer Date Recorded Patient Health Questionnaire-9 Score 7 04/17/2022 Housing Stability Answer Date Recorded What is your housing situation today? I have ernst jara 02/09/[address] you li ve. Do you have problems with any of the following? None of the above 02/09/2023 Food Insecurity Answer Date Recorded Within the past 12 months, y ou worried that your food would run out before you got money to buy more: Never True 02/09/2023 Within the past 12 months,th e food you bought just didn't last and you didn't have enough money to get more: Never True 01/2023 Transportation Answer Date Recorded In the past 12 months, has l ack of transportation kept you from medical appts, meetings, work or from getting things needed for daily living? No 02/09/2023 Utilities Answer Date Recorded In the past 12 months, has t he electric, gas, oil or water company threatened to shut off services in your home? No 02/09/2023 Depression Answer Date Recorded Patient Health Questionnaire-2 Score 3 04/17/2022 Comments Unknown Sex and Gender Information Value Date Recorded Sex Assigned at Female 03/03/2022 10:18 AM EDT Legal Sex Female 10:18 AM EDT Gender Identity Female 03/03/2022 10:18 AM EDT Sexual Orientation Straight 03/03/2022 10 :18 AM EDT documented as of this encounter Plan of Treatment Scheduled Orders Name Type Priority Associated Diagnoses Orde r Schedule Lipid Panel with Reflex to Direct LDL Lab Routine Dyslipidemia Expected: 05/09/2023, Expires: 02/07/2024 Hepatic Function Panel Lab Routine Dyslipidemia Expected: 05/09/2023, Expires: 02/07/2024 documented as of this encounter Visit Diagnoses Diagnosis Dyslipidemia- Primary Other and unspecified hyperlipidemia documented in this encounter Additional Health Concerns Assessment Noted Time PHQ-9 Depression Total Score: 7 04/17/20 22 9:30 AM EST documented as of this encounter Care Teams 911 Operator Relationship Specialty Start Date End Date Lulú Painting MD [address] [place] [address] PCP - General Family Medicine 11/18/13 documented as of this encounter
--- OUTSIDE RECORDS SUMMARY | 2024-07-06 07:53 | XMS_ITS | Clinical Summary ---
Author Organization [facility] it[facility] Address [address] [place] [address] Care Team Providers Care Senior Finance Manager Name Role Phone Unavailable Primary Care Provider Unavailabl e Surgical History Surgery Date Site/Laterality Comments TUBAL LIGATION PROCEDURE: HISTORICAL TUBAL LIGATION Social History Tobacco Use Types Packs/Day Years Used Date Smoking Tobacco: Never Smokeless Tobacco: Never Alcohol Use Standard Drinks/Week Comments No 0 (1 standard drink = 0.6 oz pur e alcohol) Comments Unknown Sex and Gender Information Value Date Recorded Sex Assigned at Not on file Legal Sex Female 2:34 PM EST Gender Identity Not on file Sexual Orientation Not on file Obstetrics History Last Filed Vital Signs Vital Sign Reading Time Taken Comments Blood Pressure - - Pulse - - Temperature - - Respiratory Rate - - Oxygen Saturation - - Inhaled Oxygen Concentration - - Weight 93.4 kg (206 lb) 12/16/2022 2:27 PM EDT Height 152.4 cm (5') 12/16/2022 2:27 PM EDT Body Mass Index 40.23 12/16/2022 2:27 PM EDT Plan of Treatment Health Maintenance Due Date Last Done Comments Breast Cancer Screening 1973 DTaP,Tdap,and Td Vaccines (1 - Tdap) 1992 Hepatitis B Vaccines (1 of 3 - 19+ 3-dose series) 1992 Cervical Cancer Screening: P ap Smear 1994 Colorectal Cancer Screening: Colonoscopy 06/03/2023 Depression Screening 06/03/2023 HIV Screening 06/03/2023 Hepatitis C Screening 06/03/2023 Social Influencers of Health Screening 06/03/2023 Pneumococcal Vaccine: 50+ Ye ars (1 of 1 - PCV) 07/19/2023 Zoster Vaccines (1 of 2) 07/19/2023 COVID-19 Vaccine (2023-2 5 season) 2024 Influenza Vaccine (#1) 2024 HIB Vaccines Aged Out No longer eligi ble based on patient's age to complete this topic HPV Vaccines Aged Out No longer eligi ble based on patient's age to complete this topic Hepatitis A Vaccines Aged Out No long er eligible based on patient's age to complete this topic IPV Vaccines Aged Out No longer eligi ble based on patient's age to complete this topic MMR Vaccines Aged Out No longer eligi ble based on patient's age to complete this topic Meningococcal ACWY Vaccine Aged Out N o longer eligible based on patient's age to complete this topic Meningococcal B Vacine Aged Out No lo nger eligible based on patient's age to complete this topic Pneumococcal Vaccine: Pediat rics (0 to 5 Years) and At-Risk Patients (6 to 64 Years) Aged Out No longer eligible b ased on patient's age to complete this topic RSV Immunization Patients Un raheem 20 months Aged Out No longer eligible b ased on patient's age to complete this topic Varicella Vaccines Aged Out No longer eligible based on patient's age to complete this topic
--- OUTSIDE RECORDS SUMMARY | 2024-07-06 07:53 | XMS_ITS | Encounter Summary ---
Author Organization [employer] Address [address] [place] [address] Care Team Providers Care Supply Tech Name Role Phone Lulú Painting MD Primary Care Provider [phone] Reason for Visit * Reason Onset Date Comments chart prep 06/16/2024 Encounter Details Date Type Department Care Team ([facility] st Contact Info) Description 06/16/2024 Telephone [facility] MEDICINE [address] [place] [address] Roseline Seals MA chart prep Social History Tobacco Use Types Packs/Day Years Used Date Smoking Tobacco: Never Passive Smoke Exposure: Never Smokeless Tobacco: Never Depression Answer Date Recorded Patient Health Questionnaire-9 Score 18 02/01/2024 Patient Health Questionnaire-9 Score 18 02/01/2024 Last PHQ-9: Questionnaire Data Not on file 0 02/01/2024 Housing Stability Answer Date Recorded What is your housing situation today? I have ernst jara 02/17/[address] you li ve. Do you have problems with any of the following? None of the above 02/17/2023 Food Insecurity Answer Date Recorded Within the past 12 months, y ou worried that your food would run out before you got money to buy more: Sometimes True 2023 Within the past 12 months,th e food you bought just didn't last and you didn't have enough money to get more: Sometimes True 07/13/2023 Transportation Answer Date Recorded In the past 12 months, has l ack of transportation kept you from medical appts, meetings, work or from getting things needed for daily living? No 02/17/2023 Utilities Answer Date Recorded In the past 12 months, has t he electric, gas, oil or water company threatened to shut off services in your home? No 02/17/2023 Depression Answer Date Recorded Patient Health Questionnaire-2 Score 4 02/01/2024 Comments Unknown Sex and Gender Information Value Date Recorded Sex Assigned at Female 03/03/2022 10:18 AM EDT Legal Sex Female 10:18 AM EDT Gender Identity Female 03/03/2022 10:18 AM EDT Sexual Orientation Straight 03/03/2022 10 :18 AM EDT documented as of this encounter Miscellaneous Notes * Telephone Encounter - Roseline Seals MA - 06/16/2024 2:03 PM EST ..chart Prep Labs: not applicable Images: not applicable Vaccines due: Covid Due and Hep A Due Referrals: Completed Screenings: Colonoscopy and Eye Exam Overdue care gaps: A1C, Glucose, and Sbirt documented in this encounter Plan of Treatment Not on file documented as of this encounter Visit Diagnoses Not on filedocumented in this encounter Additional Health Concerns Assessment Noted Time PHQ-9 Depression Total Score: 18 024 1:53 PM EDT documented as of this encounter Care Teams Supply Tech Relationship Specialty Start Date End Date Lulú Painting MD [address] [place] [address] PCP - General Family Medicine 11/18/13 documented as of this encounter
--- OUTSIDE RECORDS SUMMARY | 2024-07-06 07:53 | XMS_ITS | Encounter Summary ---
Author Organization [employer] Address [address] [place] [address] Care Team Providers Care Automotive Service Assistant Name Role Phone Lulú Painting MD Primary Care Provider [phone] Reason for Visit * Reason Comments Med Change Request Encounter Details Date Type Department Care Team (Late st Contact Info) Description 09/09/2022 Refill [facility] MEDICINE [address] [place], [place] [phone] Monse Burrell MD [address] [place], [place] [phone] Social History Tobacco Use Types Packs/Day Years Used Date Smoking Tobacco: Never Passive Smoke Exposure: Never Smokeless Tobacco: Never Depression Answer Date Recorded Patient Health Questionnaire-9 Score 7 04/17/2022 Depression Answer Date Recorded Patient Health Questionnaire-2 Score 3 04/17/2022 Comments Unknown Sex and Gender Information Value Date Recorded Sex Assigned at Female 03/03/2022 10:18 AM EDT Legal Sex Female 10:18 AM EDT Gender Identity Female 03/03/2022 10:18 AM EDT Sexual Orientation Straight 03/03/2022 10 :18 AM EDT documented as of this encounter Plan of Treatment Not on file documented as of this encounter Visit Diagnoses Not on filedocumented in this encounter Additional Health Concerns Assessment Noted Time PHQ-9 Depression Total Score: 7 04/17/20 22 9:30 AM EST documented as of this encounter Care Teams Automotive Service Assistant Relationship Specialty Start Date End Date Lulú Painting MD [address] [place] [address] PCP - General Family Medicine 11/18/13 documented as of this encounter
--- OUTSIDE RECORDS SUMMARY | 2024-07-06 07:53 | XMS_ITS | Clinical Summary ---
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 diskus or Wixela diskus ?? continue Singulair ?? continue albuterol HFA prn Assessment & Plan (07/30/2022 6:34 PM EDT): ?? most recent exacerbation in 12/2021 w/ COVID-129, received prednisone, Abx for PNA ?? no Hx intuabtion ?? Discontinue Flovent, initiate Advair diskus or Wixela diskus ?? continue Singulair ?? continue albuterol HFA prn Assessment & Plan (04/17/2022 5:53 AM EST): ?? most recent exacerbation in 12/2021 w/ COVID-129, received prednisone, Abx for PNA ?? no Hx intuabtion ?? continue Flovent diskus as maintenance ?? continue Singulair ?? continue albuterol HFA prn Status post hysterectomy 06/03/2016 Assessment & Plan (10/21/2023 12:30 PM EDT): - Follow up with hydrogen cell tender (Dr. Burr) to discuss ongoing pain and sensation of something down inside. - Consider muscle strain as a potential cause of pain. - Schedule a CT scan to investigate abdominal pain and ensure no complications from previous surgery. - Blood work to be done prior to CT scan. Hypertriglyceridemia 06/22/2012 Assessment & Plan (02/02/2024 9:35 AM EDT): Last lipid profile: 02/05/23 TC 174; TG 428; HDL 33; LDL 78 Assessment & Plan (04/24/2023 12:43 PM EST): Last lipid profile: 02/05/23 TC 174; TG 428; HDL 33; LDL 78 Neck pain 09/17/2011 Shoulder joint pain 09/16/2011 Varicose veins of lower extremity 09/16/2011 Allergic rhinitis 05/04/1961 Assessment & Plan (10/21/2023 12:28 PM EDT): - Continue using nasal spray and Montelukast. - Avoid scratching nasal passages to prevent irritation. 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 01/24/2023 Chronic gastritis 09/29/2013 04/17/2022 Impaired fasting glucose 03/17/2013 Obesity 04/16/2012 04/17/2022 Encounters Date Type Department Care Team Description 06/16/2024 Telephone [facility] MEDICINE [address] [place] [phone] Roseline Seals MA chart prep from Last 3 Months Immunizations Name Administration Dates Next Due Hep A, Adult 10/20/2023 Hep B, adult 10/20/2023,,02/19/2023,01/20 Influenza injectable quadriv alent preservative free 01/20/2023,03/12/2022,05/23/2021,02/20,04/10/2016 Influenza, IIV3, injectable 01/20/2023,1 05/12/2021,05/23/2021,02/20,04/10/2016 Moderna Covid-19 Vaccine 12+ 06/22/2020,05/25/19 21 Pfizer Covid-19 Vaccine 12+ 05/10/2021 Pneumococcal Conjugate PCV 20 10/20/2023, 022 Pneumococcal Polysaccharide PPSV23 04/10/2016 TD (adult), 2 Lf tetanus tox oid, preservative free, adsorbed 08/13/2007 Td (adult), 5 Lf tetanus tox oid, preservative free, adsorbed 08/04/2021 Td (adult), unspecified 08/04/2021,08/13/2007 Tdap 06/03/2016 Zoster, Recombinant 08/25/2023,02/19/2023 Social History Tobacco Use Types Packs/Day Years Used Date Smoking Tobacco: Never Passive Smoke Exposure: Never Smokeless Tobacco: Never Tobacco Cessation:Counseling Given: Not Answered Depression Answer Date Recorded Patient Health Questionnaire-9 [...] Orientation Straight 03/03/2022 10 :18 AM EDT Last Filed Vital Signs Vital Sign Reading Time Taken Comments Blood Pressure 116/70 02/01/2024 1:50 PM EDT Pulse 80 02/01/2024 1:50 PM EDT Temperature 36.6 ??C (97.8 ??F) 02/01/2024 1:50 PM ED T Respiratory Rate 20 02/01/2024 1:50 PM EDT Oxygen Saturation 98% 04/16/2023 10:20 AM EST Inhaled Oxygen Concentration - - Weight 81.3 kg (179 lb 3.2 oz) 10/20/2023 3:58 P M EDT Height 155.5 cm (5' 1.22 ) 04/16/2023 10:[address] Body Mass Index 33.62 04/16/2023 10:20 AM EST Plan of Treatment Health Maintenance Due Date Last Done Comments CT Colonography 1973 FIT DNA/Cologuard 1973 FIT 1975 FOBT 1975 Sigmoidoscopy 1975 Eye Exam 07/19/1983 Alcohol/Substance Use Screening 1985 Family Planning (PISQ) 1988 Colonoscopy 09/23/2023 09/22/2013 Colorectal Cancer Screening 09/23/2023 COVID-19 Vaccine ( season) 2024 05/10/2021, 06/22/2020, 05/25/2020 Diabetes: Hemoglobin A1C 05/02/2024 024, 10/20/2023, 07/21/2023, Additional history exists SDOH Screening 07/12/2024 07/13/2023 Diabetes: Foot Exam 07/20/2024 07/21/2023, 07/21/2023, 07/21/2023, Additional history exists Depression Monitoring (PHQ-9) 07/31/2024 02/01/2024, 02/01/2024 Depression Screening 01/31/2025 02/01/2024, 02/01/20 24 Tobacco Screening 01/31/2025 02/01/2024 Diabetes: Urine Protein Screening 02/12/2025 02/13/2024, 04/16/2023, 06/11/2021 Lipid Panel 02/12/2025 02/13/2024, 10/0 09/2022, 02/05/2023, Additional history exists Pap Smear 05/21/2025 05/21/2022, 05/21/2022 Mammogram 06/29/2025 06/29/2023, 05/06, 01/16/2021, Additional history exists Cervical Cancer Screening 05/21/2027 HPV/Cotest 05/21/2027 05/21/2022 DTaP/Tdap/Td Vaccines (4 - Td or Tdap) 08/05/2031 08/04/2021, 08/04/2021, 06/03/2016, Additional history exists RSV Patients and Patients Aged 60 years or older (1 - 1-dose 75+ series) 2048 HIV Screening Completed 06/02/2022, 06/11/2021 Hepatitis C Screening Completed 06/02/2022, 022 Zoster Vaccines Completed 08/25/2023, 02/19/2023 Hepatitis A Vaccines Discontinued 10/20/2023 Hepatitis B Vaccines Completed 10/20/2023, 07/21/2023, 02/19/2023, Additional history exists Pneumococcal Vaccine: 50+ Years Completed 10/20/2023, 03/12/2022, 04/10/2016 Influenza Vaccine Completed 03/10/2024, , 01/20/2023, Additional history exists HIB Vaccines Aged Out No longer eligi ble based on patient's age to complete this topic HPV Vaccines Aged Out No longer eligi ble based on patient's age to complete this topic IPV Vaccines Aged Out No longer eligi ble based on patient's age to complete this topic Meningococcal Vaccine Aged Out No warren anthony eligible based on patient's age to complete this topic RSV under 20 months Aged Out No longe r eligible based on patient's age to complete this topic Rotavirus Vaccines Aged Out No longer eligible based on patient's age to complete this topic Procedures Procedure Name Priority Date/Time Associated Diagnosis Comments LIPID PANEL WITH REFLEX TO DIRECT LDL Routine 02/13/2024 10:43 AM EDT Hypertriglyceridem ia Dyslipidemia Type 2 diabetes mellitus with hyperglycemia, without long-term current use of insulin ([facility]) ALBUMIN, RANDOM URINE W/CREATININE Routine 02/13/2024 10:42 AM EDT Type 2 diabetes mellitus with hyperglycemia, without long-term current use of insulin ([facility]) POCT GLYCOSYLATED HEMOGLOBIN (HGB A1C) Routine 02/01/2024 1:54 PM EDT Type 2 diabetes mellitus with other specified complication, without long-term current use of insulin (CMS/HCC) BI MAMMOGRAM SCREENING TOMOSYNTHESIS BILATERAL Routine 06/29/2023 8:20 AM EST HEPATITIS C ANTIBODY Routine 06/02/2022 7:47 AM EST HIV ANTIBODY/ANTIGEN ([facility] D[facility]) Routine 06/02/2022 7:47 AM EST HPV MRNA E6/E7 REFLEX TO HPV 16, 18/45 Routine 05/21/2022 8:10 AM EST PAP SMEAR Routine 05/21/2022 8:10 AM EST HM COLONOSCOPY Routine 09/22/2013 from Last 3 Months or Most Recently Relevant to Health Maintenance Results * (ABNORMAL) Lipid Panel with Reflex to Direct LDL (02/13/2024 10:43 AM EDT) Triglycerides 228(H) <150 mg/dL [facility] Comment:Desirable Triglyceri de: less than 150 mg/dLBorderline High Triglyceride 150-199 mg/dLHigh Triglyceride: 200-499 mg/dLVery High Triglyceride: greater than or equal to 5OO mg/dL Cholesterol 201(H) <200 mg/dL [facility] Comment:Desirable Cholestero l: less than 200 mg/dLBorderline High Cholesterol: 200-239 mg/dLHigh Cholesterol: greater than 239 mg/dL LDL Cholesterol Calculated 116(H) <100 mg/dL [facility] Comment:Desirable LDL: less than 100 mg/dLNear Optimal/Above Optimal LDL: 110- 129 mg/dLBorderline High LDL: 130-159 mg/dLHigh LDL: 160-189 mg/dLVery High LDL: greater than or equal to 190 mg/dL HDL Cholesterol 40(L) >40 mg/dL [facility] Comment:Desirable HDL: great er than 40 mg/dL Note: This HDL assay may give artificially low results in patients with liver disease. Blood 02/13/2024 10:4 3 AM EDT 02/13/2024 10:43 AM EDT Lulú Painting MD LAB BLOOD ORDERABLES Final Resul t Performing Organization Address [facility] Phone Number [facility] [address] [place] [phone] * Albumin, Random Urine W/Creatinine (02/13/2024 10:42 AM EDT) Creatinine, Urine 123.69 mg/dL [facility] Microalbumin Urine 14.0 mg/L [facility] Microalbum Creatinine Ratio Ur 11.3 <30 ug/mg cr [facility] Comment:Albumin/Creatinine R atio Reference Ranges: Normal: < 30 ug/mg creatinine Microalbuminuria: 30 - 300 ug/mg creatinineClinical Albuminuria: > 300 ug/mg creatinine Urine 02/13/2024 10:4 2 AM EDT 02/13/2024 11:06 AM EDT Lulú Painting MD LAB URINE ORDERABLES Final Resul t Performing Organization Address [facility] de Phone Number [facility] [address] [place] [phone] * (ABNORMAL) POCT glycosylated hemoglobin (Hgb A1c) (02/01/2024 1:54 PM EDT) Hemoglobin A1C 6.1(A) 4.0 - 6.0 % QC Media Lot # [id number] Lot# Expiration Date Blood Capillary blood specimen / Unknown 02/01/2024 1:54 PM EDT Lulú Painting MD POINT OF CARE TEST ENTER/EDIT OR DERABLES Final Result * BI Mammogram Screening Tomosynthesis Bilateral (06/29/2023 8:20 AM EST) Anatomical Region Laterality Modality Breast Bilateral Mammography 06/29/2023 8:20 AM EST Narrative 07/19/2023 9:38 AM EDT ? [facility] ? [address] ?[place] [address] ? Mammography Report ? Signed ? Patient: Mendez,Suma ?MR#: [id number] ? : 1975 ?Acct:[id number] ? Age/Sex: 47 / F ?ADM Date: 06/29/23 ? Loc: HO.MAMMO ? Attending Dr: Lulú Painting MD ? Ordering Physician: Bernardo Willard MD ?Results: 1Negativ ?? e ? Date of Service: 06/29/23 ?Follow Up: 1 Year From Orig ?? inal Mammogram ? Procedure(s): MM tomosynthesis screening BI ?? Accession Number(s): [id number] ? cc: Lulú Painting MD; Bernardo Willard MD ? EXAMINATION: ?? MM SCREENING DIGITAL BREAST TOMOSYNTHESIS, BILATERAL ? CLINICAL INFORMATION: ? Screening. Asymptomatic. ? COMPARISON: ?? Mammography: This study is compared with prior exams dating back to ?? 2019. ? TECHNIQUE: ?? Digital breast tomosynthesis is performed in both the craniocaudal and ?? mediolateral oblique views along with computer-aided detection (CAD). ?? Synthesized 2D images are generated from the tomosynthesis. ? FINDINGS: ?? The breasts are almost entirely fatty (ACR BI-RADS breast composition ?? Category a). ? There are no significant masses, abnormal calcifications, or other ?? abnormalities. ? MM/MM tomosynthesis screening BI ?? IMPRESSION: ?? No mammographic evidence of malignancy. ? ASSESSMENT: ? BI-RADS BI-RADS 1 - Negative ? RECOMMENDATION: ?? Routine annual mammography screening. ? 1 year F/U ? This examination should not preclude the clinical evaluation of a ?? suspicious palpable abnormality. ? This patient's information was entered into a reminder system with a ?? target due date for their next mammogram. ? Dictated By: ?Anali More MD ? Signed By: ?<Electronically signed by Anali More MD in OV> ? 07/19/23 0935 ? DD/ 0820 ? TD/TT: ? Rough Rice Grader: ? Procedure Note Donbereniceter, Image - 07/19/2023 [place] [facility] [address] [place], [place] [address] Mammography Report Signed Patient: Ana Simms#: [id number] : 1975Acct:[id number] Age/Sex: 47 / FADM Date: 06/29/23 Loc: EMMETT Attending Dr: Lulú Painting MD Ordering Physician: Bernardo Willardesults: 1Negativ e Date of Service: 06/29/23Follow Up: 1 Year From Orig inal Mammogram Procedure(s): MM tomosynthesis screening BI Accession Number(s): [id number] cc: Lulú Painting MD; Bernardo Willard MD EXAMINATION: MM SCREENING DIGITAL BREAST TOMOSYNTHESIS, BILATERAL CLINICAL INFORMATION: Screening. Asymptomatic. COMPARISON: Mammography: This study is compared with prior exams dating back to 2019. TECHNIQUE: Digital breast tomosynthesis is performed in both the craniocaudal and mediolateral oblique views along with computer-aided detection (CAD). Synthesized 2D images are generated from the tomosynthesis. FINDINGS: The breasts are almost entirely fatty (ACR BI-RADS breast composition Category a). There are no significant masses, abnormal calcifications, or other abnormalities. MM/MM tomosynthesis screening BI IMPRESSION: No mammographic evidence of malignancy. ASSESSMENT: BI-RADS BI-RADS 1 - Negative RECOMMENDATION: Routine annual mammography screening. 1 year F/U This examination should not preclude the clinical evaluation of a suspicious palpable abnormality. This patient's information was entered into a reminder system with a target due date for their next mammogram. Dictated By: Anali More MD Signed By: <Electronically signed by Anali More MD in OV> 07/19/23934 DD/ 9 TD/TT: Rough Rice Grader: [facility] External Provider IMG BI PROCEDURES Edited Result - Final * Hepatitis C Ab (06/02/2022 7:47 AM EST) Hepatitis C Antibody Nonreactive Nonreactive [facility] Comment:Antibodies to HCV no t detected; does not exclude early acuteHCV infection. 06/02/2022 7:47 AM EST 06/02/2022 7:47 AM EST [facility] External Provider LAB BLO OD ORDERABLES Final Result [facility] [address] [place] [phone] * HIV Ab/Ag ([facility]) (06/02/2022 7:47 AM EST) HIV AB/AG Nonreactive Nonreactive [facility] Comment:HIV-1 p24 Ag and/or HIV-1/HIV-2 Ab not detected.A test result that is nonreactive does not exclude thepossibility of exposure to or infection with HIV-1 and/orHIV-2. Nonreactive results in this assay for individualswith prior exposure to HIV-1 and/or HIV-2 may be due toantigen and antibody levels that are below the limit ofdetection of this assay.The [employer] Color Checker HIV Ag/Ab Combo assay result andsupplemental assay results should be interpreted inconjunction with the patient's clinical presentation,history and other laboratory results. If the results areinconsistent with clinical evidence, additional testing issuggested to confirm the result. 06/02/2022 7:47 AM EST 06/02/2022 7:47 AM EST [facility] External Provider LAB BLO OD ORDERABLES Final Result [facility] [address] [place] [phone] * HPV mRNA E6/E7 w/Reflex to HPV Genotypes 16, 18/45 (05/21/2022 8:10 AM EST) HPV nRNA E6/E7 Not Detected Not Detected [facility] Comment:Methodology: Transcr iption-Mediated AmplificationThis assay detects E6/E7 viral messenger RNA (mRNA) from 14high-risk HPV types (16,18,31,33,35,39,45,51,52,56,58,59,66,68).Cervical sources are required for HPV testing.If a vaginal source from a patient who has had atotal hysterectomy with removal of cervix wassubmitted, please contact the testing laboratoryfor alternative testing options.For additional information, please refer tohttp://education.Xceligent/faq/TDD840e3(This link if provided for information/educational purposes only.)THIS TEST WAS PERFORMED AT:[employer] [place] [address] ([facility])[place] [address]IYCHPAYDEN WHITTINGTON MD HPV mRNA E6/E7 [facility] HPV 16 RNA [facility] HPV 18/45 RNA [facility] 05/21/2022 8:10 AM EST 05/21/2022 3:30 PM EST [facility] External Provider LAB CYT OLOGY ORDERABLES Final Result [facility] [address] [place] [phone] * Pap Smear (05/21/2022 8:10 AM EST) 05/21/2022 8:10 AM EST 05/21/2022 3:30 PM EST Narrative [facility] - 06/02/2022 3:00 PM EST ----- ------- Name: Suma Simms ?Age/Sex: 46/F ? : 1975 Unit#: [id number] ?? Attend Dr: Bernardo Willard MD ?Re05/21/22 ?Status: DEP REF ? Location: HO.LNP ?Disch: ? ----- ------- SPEC : [id number] ? RECD: 05/21/22-1529 ? STATUS: ??SOUT ? REQ NUM: [id number] ? RADHA: 05/21/22 ? SUBM DR: Bernardo Willard MD ? ENTERED: ??05/21/22 ?SP TYPE: Pap Smr ?OTHR DR: Lulú Painting MD ? ORDERED: ??Pap Smear ? Interpretation ?? Satisfactory for evaluation. ?? No endocervical cells seen. ?? Negative for intraepithelial lesion or malignancy. ?? Coccobacilli consistent with shift in vaginal tre. ? HPV mRNA E6/E7: ?NOT DETECTED ? This assay detects E6/E7 viral messenger RNA (mRNA) from 14 high-risk HPV types (16, 18, ?? 31, 33, 35, 39, 45, 51, 52, 56, 58, 59, 66, 68) ? HPV testing performed by [employer], [place], [place]. ??See reference laboratory ?? portion of the EMR for entire report. ?Clinical Information LMP: Post menopause Previous PAP test: Unknown ? Material Received ?? ThinPrep-Cervical Copies To: ?? Lulú Painting MD ?? [address] ?? [place] [address] ? Bernardo Willard MD ?? [address] ?? [place] [address] ?? [phone] ----- ------- Signed (signature on file) Leah Dunne 06/02/22 1500 ? ----- ------- ? END OF REPORT ? [facility] External Provider LAB [facility] ORDERABLES Final Result [facility] [address] [place] [phone] * Hm Colonoscopy (09/22/2013) Colonoscopy Normal Normal 09/22/2013 Narrative Julia Macdonald - 10/10/2022 11:35 AM EDT Per [facility] notes ??from 03/17/2022 patient had normal colonoscopy but unable to find path results Monique Avila HEALTH MAINTENANCE Edited Result - Final from Last 3 Months or Most Recently Relevant to Health Maintenance Insurance [facility] Care Teams Glove Former Relationship Specialty Start Date End Date Lulú Painting MD [address] [place] [phone] PCP - General Family Medicine 11/18/13
--- OUTSIDE RECORDS SUMMARY | 2024-07-06 07:53 | XMS_ITS | Encounter Summary ---
Author Organization [employer] Address [address] [place] [address] Care Team Providers Care Program Trainer Name Role Phone Lulú Painting MD Primary Care Provider [phone] Encounter Details Date Type Department Care Team (Late st Contact Info) Description 10/10/2022 Abstract [facility] MED[facility] [address] [place], [place] [phone] Lulú Painting MD [address] [place], [place] [phone] Social History Tobacco Use Types Packs/Day Years [...] Orientation Straight 03/03/2022 10 :18 AM EDT COVID-19 Exposure Response Date Recorded In the last 10 days, have yo u been in contact with someone who was confirmed or suspected to have Coronavirus/COVID-19? No / Unsure 10/09/2022 9:26 AM EDT documented as of this encounter Plan of Treatment Not on file documented as of this encounter Procedures Procedure Name Priority Date/Time Associated Diagnosis Comments HM COLONOSCOPY Routine 09/22/2013 documented in this encounter Results * Hm Colonoscopy (09/22/2013) Colonoscopy Normal Normal 09/22/2013 Narrative Julia Macdonald - 10/10/2022 11:35 AM EDT Per [facility] notes ??from 03/17/2022 patient had normal colonoscopy but unable to find path results [facility] Result - Final documented in this encounter Visit Diagnoses Not on filedocumented in this encounter Additional Health Concerns Assessment Noted Time PHQ-9 Depression Total Score: 7 04/17/20 22 9:30 AM EST documented as of this encounter Care Teams Program Trainer Relationship Specialty Start Date End Date Lulú Painting MD [address] [place] [phone] PCP - General Family Medicine 11/18/13 documented as of this encounter
== END 2024-07-06 07:50 | disposition home or self-care (01) ==
LOC: HO.MAMMO 07:49
PROVIDERS: PCP Family Medicine; Visit Provider Family Medicine
DX: Z12.31 Encounter for screening mammogram for malignant neoplasm of breast (principal)
CPT/HCPCS: 77063; 77067

== ENCOUNTER 2024-08-04 13:56 | Outpatient (REF) | payer OTHER, MEDICAID, SELFPAY ==
--- NOTE | ~2024-08-04 | XR_ITS ---
EXAMINATION: XR CERVICAL SPINE 2-3 VIEWS HISTORY: PAIN COMPARISON: Comparison is made with the prior examination dated 07/18/2017. FINDINGS: AP, lateral, bilateral oblique, and open-mouth odontoid views of the cervical spine are submitted. Osseous mineralization is normal. Seven cervical vertebral bodies are identified maintaining normal height and alignment without evidence of fracture or subluxation. The intervertebral disc spaces are preserved. There is narrowing of the bilateral C3-4 neural foramen secondary to facet and uncovertebral joint hypertrophy. There is also slight narrowing of the right C4-5 and C5-6 neural foramen and the left C4-5 neural foramen. The odontoid and lateral masses of C1 are intact. There is no prevertebral soft tissue swelling. XR/XR cervical spine 3V IMPRESSION: Mild degenerative changes as described. Electronically signed by: Miguelito Kerr MD 08/04/2024 03:49 PM EDT
--- OUTSIDE RECORDS SUMMARY | 2024-08-04 15:22 | XMS_ITS | Clinical Summary ---
Author Organization [employer] [facility] Address [address] [place] [address] Care Team Providers Care Data Warehouse Analyst Name Role Phone Unavailable Primary Care Provider [...]
--- OUTSIDE RECORDS SUMMARY | 2024-08-04 15:23 | XMS_ITS | Encounter Summary ---
Author Organization [employer] Address [address] [place] [address] Care Team Providers Care Manager Core Name Role Phone Lulú Painting MD Primary Care Provider [phone] Encounter Details Date Type Department Care Team (Late st Contact Info) Description 02/06/2023 Orders Only [facility] MED[facility] [address] [place], [place] [phone] Lulú Painting MD [address] [place], [place] [phone] Dyslipidemia (Primary Dx) Social History Tobacco Use [...] documented as of this encounter Care Teams Manager Core Relationship Specialty Start Date End Date Lulú Painting MD [address] [place] [address] PCP - General Family Medicine 11/18/13 documented as of this encounter
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
--- OUTSIDE RECORDS SUMMARY | 2024-08-04 15:23 | XMS_ITS | Encounter Summary ---
Author Organization [employer] Address [address] [facility] [address] [place] [address] Care Team Providers Care Automotive Parts Advisor Name Role Phone Lulú Painting MD Primary Care Provider [phone] Reason for Visit * Reason Comments Med Change Request Encounter Details Date Type Department Care Team (Late st Contact Info) Description 09/09/2022 Refill [facility] MEDICINE [address] [place], [place] [phone] Monse Burrell MD [address] [place], [place] [phone] Social History Tobacco Use Types Packs/Day Years [...] as of this encounter Care Teams Automotive Parts Advisor Relationship Specialty Start Date End Date Lulú Painting MD [address] [place] [address] PCP - General Family Medicine 11/18/13 documented as of this encounter
--- OUTSIDE RECORDS SUMMARY | 2024-08-04 15:23 | XMS_ITS | Encounter Summary ---
Author Organization [employer] Address [address] [facility] [address] [place] [address] Care Team Providers Care Front Load Trash Truck Driver Name Role Phone Lulú Painting MD Primary Care Provider [phone] Encounter Details Date Type Department Care Team ([facility] st Contact Info) Description 08/04/2024 Telephone [facility] MEDICINE [address] [place], [place] [phone] Lulú Painting MD [address] [place], [place] [phone] Social History Tobacco Use Types Packs/Day Years [...] documented as of this encounter Care Teams Front Load Trash Truck Driver Relationship Specialty Start Date End Date Lulú Painting MD [address] [place] [id number] PCP - General Family Medicine 11/18/13 documented as of this encounter
--- OUTSIDE RECORDS SUMMARY | 2024-08-04 15:23 | XMS_ITS | Encounter Summary ---
Author Organization [employer] Address [address] [facility] [address] [place] [address] Care Team Providers Care Supply Tech Name Role Phone Lulú Painting MD Primary Care Provider [phone] Encounter Details Date Type Department Care Team (Late st Contact Info) Description 10/10/2022 Abstract [facility] MEDICINE [address] [place], [place] [phone] Lulú Painting MD [address] [place], [place] [phone] Social History Tobacco Use Types Packs/Day Years [...] Macdonald - 10/10/2022 11:35 AM EDT Per [facility] notes ??from 03/17/2022 patient had normal colonoscopy but unable to find path results [facility] Result - Final documented in this encounter Visit Diagnoses Not on filedocumented in this encounter Additional Health Concerns Assessment Noted Time PHQ-9 Depression Total Score: 7 04/17/20 22 9:30 AM EST documented as of this encounter Care Teams Supply Tech Relationship Specialty Start Date End Date Lulú Painting MD [address] [place] [address] PCP - General Family Medicine 11/18/13 documented as of this encounter
--- OUTSIDE RECORDS SUMMARY | 2024-08-04 15:23 | XMS_ITS | Encounter Summary ---
Author Organization [employer] Address [address] [place] [address] Care Team Providers Care Weather Analyst Name Role Phone Lulú Painting MD Primary Care Provider [phone] Encounter Details Date Type Department Care Team (Latest Contact Info) Description 08/04/2024 Travel Social History Tobacco Use Types Packs/Day Years [...] documented as of this encounter Care Teams Weather Analyst Relationship Specialty Start Date End Date Lulú Painting MD [address] [place] [address] PCP - General Family Medicine 11/18/13 documented as of this encounter
--- OUTSIDE RECORDS SUMMARY | 2024-08-04 15:23 | XMS_ITS | Encounter Summary ---
Author Organization [employer] Address [address] [facility] [address], [place] [address] Care Team Providers Care Puller Machine Name Role Phone Lulú Painting MD Primary Care Provider [phone] Reason for Referral * Medications - Closed Specialty Diagnoses / Procedures Referred By Brooke bartholomew Referred To Contact Diagnoses Chronic pain of both knees Moni Perez MD [address] [place] [address] Phone: tel: fax: Referral ID Status Reason Start Date Expiration Date Visits Re quested Visits Authorized [id number] Closed 08/04/2024 08/04/2025 1 1 Encounter Details Date Type Department Care Team (Late st Contact Info) Description 08/04/2024 1:15 PM EDT Office Visit [facility] MEDICINE [address] [place] [phone] Moni Perez MD [address] [place] [address] [phone] Dysuria (Primary Dx); Chronic pain of both knees Social History Tobacco Use Types Packs/Day Years Used Date Smoking Tobacco: Never Passive Smoke Exposure: Never Smokeless Tobacco: Never Tobacco Cessation:Counseling Given: Not Answered Depression Answer Date Recorded Patient Health Questionnaire-9 Score 02/01/2024 Patient Health Questionnaire-9 Score 02/01/2024 Last PHQ-9: Questionnaire Data Not on [...] AM EDT documented as of this encounter Last Filed Vital Signs Vital Sign Reading Time Taken Comments Blood Pressure 128/74 08/04/2024 1:10 PM EDT Pulse 90 08/04/2024 1:10 PM EDT Temperature 36.7 ??C (98 ??F) 08/04/2024 1:10 PM EDT Respiratory Rate 20 08/04/2024 1:10 PM EDT Oxygen Saturation 95% 08/04/2024 1:10 PM EDT Inhaled Oxygen Concentration - - Weight - - Height 155.5 cm (5' 1.22 ) 08/04/2024 1:10 PM ED T Body Mass Index - - documented in this encounter Plan of Treatment Scheduled Orders Name Type Priority Associated Diagnoses Orde r Schedule XR Cervical Spine 2-3 Views Imaging Routine Chronic pain of both knees Expected: 08/04/2024, Expires: 08/04/2025 Urinalysis, Complete, with Reflex to Culture Lab Routine Dysuria Expected: 08/04/2024 (Approximate), Expires: 08/04/2025 documented as of this encounter Procedures Procedure Name Priority Date/Time Associated Diagnosis Comments POCT URINALYSIS DIPSTICK Routine 08/04/2024 1:35 PM EDT Dysuria documented in this encounter Results * POCT Urinalysis (08/04/2024 1:35 PM EDT) Color, UA Yellow Clarity, UA Clear Glucose, UA Negative Bilirubin, UA Negative Ketones, UA Negative Spec Grav, UA 1.015 Blood, UA Negative Negative, None Detected pH, UA 6.5 Protein, UA Negative Urobilinogen, UA 0.2 Leukocytes, UA Negative Negative, Rare, Trace Nitrite, UA Negative Negative, None Detected QC Media Lot # [id number] Lot# Expiration Date [id number] Urine 08/04/2024 1:35 PM EDT Moni De Leon MD POINT OF CARE ALCIDES T ENTER/EDIT ORDERABLES Final Result documented in this encounter Visit Diagnoses Diagnosis Dysuria- Primary Chronic pain of both knees documented in this encounter Additional Health Concerns Assessment Noted Time PHQ-9 Depression Total Score: 18 01/31/ 024 1:53 PM EDT documented as of this encounter Care Teams Puller Machine Relationship Specialty Start Date End Date Lulú Painting MD [address] [place] [phone] PCP - General Family Medicine 11/18/13 documented as of this encounter
[2024-08-04 16:29] LABS: Appearance Urine Clear; Color Urine Yellow; Glucose Urine UA Negative (Negative); Leukocyte Esterase Urine Negative (Negative); Nitrite Urine Negative (Negative); PH 6.5 (5.0-9.0); Urine Blood Negative (Negative); Urine Ketones Negative (Negative); Urine Protein Negative (Neg-Trace)
[2024-08-04 16:35] LABS: Bacteria Urine None Seen (None Seen); Hyaline Casts Urine 0-2 /LPF (0-2); RBC Urine 0-2 /HPF (0-2); WBC Urine 0-5 /HPF (0-5)
== END 2024-08-04 13:57 | disposition home or self-care (01) ==
LOC: HO.HHCX 13:56
PROVIDERS: Visit Provider Student in an Organized Health Care Education/Training Program
DX: R30.0 Dysuria (principal); M25.561 Pain in right knee; M25.562 Pain in left knee; G89.29 Other chronic pain
CPT/HCPCS: 72040; 81001

== ENCOUNTER → 2024-08-04 13:58 | Outpatient (BNV) | payer OTHER, MEDICAID, SELFPAY | PROVIDERS: Visit Provider Radiology Diagnostic Radiology | DX: M54.2 Cervicalgia (principal) | CPT/HCPCS: 72040 ==

== ENCOUNTER 2025-03-09 07:48 | Outpatient (AMB) | payer OTHER, MEDICAID, SELFPAY ==
--- OUTSIDE RECORDS SUMMARY | 2025-03-09 07:50 | XMS_ITS | Encounter Summary ---
Author Organization [employer] Address [address] [place] [address] Care Team Providers Care Shop Clerk Name Role Phone Lulú Painting MD Primary Care Provider [phone] Reason for Visit * Reason Comments Med Change Request Encounter Details Date Type Department Care Team (Late Contact Info) Description 09/09/2022 Refill [facility] MEDICINE [address] [place] [address] [phone] Monse Burrell MD [address] [place], [place] [phone] Social History Tobacco Use Types Packs/Day Years [...] as of this encounter Plan of Treatment Upcoming Encounters Date Type Department Care Team (Late Contact Info) Description 03/16/2025 9:00 AM EST Office Visit [facility] MEDICINE [address] [place], [place] [phone] Lulú Painting MD [address] [place] [address] documented as of this encounter Visit Diagnoses Not on filedocumented in this encounter Additional Health Concerns Assessment Noted Time PHQ-9 Depression Total Score: 7 04/17/20 22 9:30 AM EST documented as of this encounter Care Teams Shop Clerk Relationship Specialty Start Date End Date Lulú Painting MD [address] [place] [address] PCP - General Family Medicine 11/18/13 documented as of this encounter
--- OUTSIDE RECORDS SUMMARY | 2025-03-09 07:50 | XMS_ITS | Encounter Summary ---
Author Organization [employer] Address [address] [place] [address] Care Team Providers Care Field Coordinator Name Role Phone Lulú Painting MD Primary Care Provider [phone] Encounter Details Date Type Department Care Team (Late st Contact Info) Description 10/10/2022 Abstract [facility] MEDICINE [address] [place], [place] [phone] Lulú Painting MD [address] [place] [address] Social History Tobacco Use Types Packs/Day Years [...] Description 03/16/2025 9:00 AM EST Office Visit [facility] MEDICINE [address] [place] [address] Lulú Painting MD [address] [place] [address] documented as of this encounter Procedures Procedure Name Priority Date/Time Associated Diagnosis Comments COLONOSCOPY Routine 09/22/2013 documented in this encounter Results * Colonoscopy (09/22/2013) Colonoscopy Normal Normal 09/22/2013 Julia Laurent - 10/10/2022 11:35 AM EDT Per [facility] notes from 03/17/2022 patient had normal colonoscopy but unable to find path results [facility] Result - Final documented in this encounter Visit Diagnoses Not on filedocumented in this encounter Additional Health Concerns Assessment Noted Time PHQ-9 Depression Total Score: 7 04/17/20 22 9:30 AM EST documented as of this encounter Care Teams Field Coordinator Relationship Specialty Start Date End Date Lulú Painting MD [address] [place] [address] PCP - General Family Medicine 11/18/13 documented as of this encounter
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
--- OUTSIDE RECORDS SUMMARY | 2025-03-09 07:50 | XMS_ITS | Encounter Summary ---
Author Organization [employer] Address [address] [place] [address] Care Team Providers Care Lace Tearing Supervisor Name Role Phone Lulú Painting MD Primary Care Provider [phone] Encounter Details Date Type Department Care Team (Late st Contact Info) Description 02/06/2023 Orders Only [facility] [address] [place], [place] [phone] Lulú Painting MD [address] [place] [address] Dyslipidemia (Primary Dx) Social History Tobacco Use [...] Description 03/16/2025 9:00 AM EST Office Visit [facility] [address] [place] [phone] Lulú Painting MD [address] [place] [address] Scheduled Orders Name Type Priority Associated Diagnoses [...] documented as of this encounter Care Teams Lace Tearing Supervisor Relationship Specialty Start Date End Date Lulú Painting MD [address] [place] [phone] PCP - General Family Medicine 11/18/13 documented as of this encounter
--- OUTSIDE RECORDS SUMMARY | 2025-03-09 07:50 | XMS_ITS | Encounter Summary ---
Author Organization [employer] Address [address] [place] [address] Care Team Providers Care Chain Saw Operator Name Role Phone Lulú Painting MD Primary Care Provider [phone] Reason for Visit * Reason Onset Date Comments Med Refill 08/05/2024 Encounter Details Date Type Department Care Team (Late st Contact Info) Description 08/05/[address] [facility] [address] [place] [address] Moni Perez MD [address] [place] [address] Chronic pain of both knees Social History [...] Description 03/16/2025 9:00 AM EST Office [address] [facility] [address] [place] [address] Lulú Painting MD [address] [place] [address] documented as of this encounter Visit Diagnoses Diagnosis Chronic pain of both knees documented in this encounter Additional Health Concerns Assessment Noted Time PHQ-9 Depression Total Score: 18 024 1:53 PM EDT documented as of this encounter Care Teams Chain Saw Operator Relationship Specialty Start Date End Date Lulú Painting MD [address] [place] [address] PCP - General Family Medicine 11/18/13 documented as of this encounter
--- OUTSIDE RECORDS SUMMARY | 2025-03-09 07:50 | XMS_ITS | Clinical Summary ---
Author Organization [facility] Address [address] [facility] [address] [place] [phone] Phone Care Team Providers Care Supervisor Coke Handling Name Role Phone Lulú Painting MD Primary Care Provider [phone] Allergies No known active allergies Medications morphine (MSIR) 15 MG tablet Take 1 tablet (15 mg total) by mouth every 4 (four) hours as needed for pain (specific location in comments). Partial fill ok 5 tablet 2 Active metFORMIN (GLUCOPHAGE) 500 MG tablet Take 500 mg by mouth 2 (two) times a day with meals. Active sertraline (ZOLOFT) 100 MG tablet Take 200 mg by mouth daily. Active busPIRone (BUSPAR) 30 MG tablet Take 30 mg by mouth daily. Active clonazePAM (KLONOPIN) 1 MG tablet Take 0.5 mg by mouth 2 (two) times a day as needed for anxiety. Active pantoprazole (PROTONIX) 40 MG tablet Take 40 mg by mouth daily. Active cetirizine (ZYRTEC) 10 MG tablet Take 10 mg by mouth daily. Active fluticasone propionate (FLOVENT HFA INHL) Inhale into the lungs. Active acetaminophen (TYLENOL) 325 mg tablet Take 650 mg by mouth every 6 (six) hours as needed for mild pain. Active montelukast (SINGULAIR) 10 mg tablet Take 10 mg by mouth nightly at bedtime. Active albuterol 90 mcg/actuation inhaler Inhale 2 puffs into the lungs every 6 (six) hours as needed for wheezing. Active ondansetron (ZOFRAN-ODT) 4 MG disintegrating tablet Take 1 tablet (4 mg total) by mouth every 8 (eight) hours as needed. 20 tablet Active Social History Tobacco Use Types Packs/Day Years Used Date Smoking Tobacco: Never Assessed Education Answer Date Recorded Are you interested in more education? Not on rajani e 08/30/2022 Are you concerned about learning? Not on file 08/30/2022 No 08/30/2022 No 08/30/2022 Digital Access Answer Date Recorded No 09/30/2022 No 09/30/2022 Reliable internet access at home? Not on file 09/30/2022 Device with a working camera? Not on file Comments Unknown Sex and Gender Information Value Date Recorded Sex Assigned at Female 10/13/2022 1:15 PM EDT Legal Sex Female 4:30 AM EDT Gender Identity Female 10/13/2022 1:15 PM EDT Sexual Orientation Straight 10/13/2022 1: 15 PM EDT Last Filed Vital Signs Vital Sign Reading Time Taken Comments Blood Pressure 121/84 08/11/2021 7:31 AM EDT Pulse 83 08/11/2021 7:31 AM EDT Temperature 36.5 C (97.7 F) 08/11/2021 7:31 AM EDT Respiratory Rate 16 08/11/2021 7:31 AM EDT Oxygen Saturation 94% 08/11/2021 7:31 AM EDT Inhaled Oxygen Concentration - - Weight 99.8 kg (220 lb) 08/11/2021 5:19 AM EDT Height 152.4 cm (5') 08/11/2021 5:19 AM EDT Body Mass Index 42.97 08/11/2021 5:19 AM EDT Plan of Treatment Health Maintenance Due Date Last Done Comments Adult Td,Tdap Booster 1973 LIPID PANEL 1973 DEPRESSION SCREENING 1985 SMOKING Hx and SMOKELESS TOB ACCO SCREENING 1986 HEPATITIS C SCREENING 07/19/1991 HIV ONE-TIME SCREENING (18-6 5 YEARS) 07/19/1991 PAP SMEAR 1994 MAMMOGRAM 2013 COLOGUARD 2018 COLONOSCOPY 2018 COLORECTAL CANCER SCREENING 2018 FIT TEST 2018 FOBT 2018 SIGMOIDOSCOPY 2018 VIRTUAL COLONOSCOPY 2018 CREATININE LEVEL 08/11/2022 08/11/2021 PNEUMOCOCCAL VACCINES (50+ y ears) (1 of 1 - PCV) 07/19/2023 ZOSTER VACCINES (1 of 2) 07/19/2023 INFLUENZA VACCINE (#1) 2024 COVID-19 VACCINE (1 - 2024-2 6 season) 2025 RSV VACCINE (1 - 1-dose 75+ series) 2048 HEPATITIS A VACCINES Aged Out No long er eligible based on patient's age to complete this topic HIB VACCINES Aged Out No longer eligi ble based on patient's age to complete this topic MENINGOCOCCAL VACCINES (ACWY) Aged Out No longer eligible based on patient's age to complete this topic MENINGOCOCCAL VACCINES (B) Aged Out N o longer eligible based on patient's age to complete this topic Medical Devices Not on file Procedures Procedure Name Priority Date/Time Associated Diagnosis Comments BASIC METABOLIC PANEL (BMP) STAT 08/11/2021 5:54 AM EDT from Last 3 Months or Most Recently Relevant to Health Maintenance Results * (ABNORMAL) Basic metabolic panel (08/11/2021 5:54 AM EDT) SODIUM 137 133 - 146 mmol/L [facility] CHLORIDE 102 96 - 108 mmol/L [facility] POTASSIUM 4.1 3.3 - 5.1 mmol/L [facility] CO2 22 21 - 35 mmol/L [facility] BUN 17 6 - 19 mg/dL [facility] CREATININE 0.40(L) 0.5 - 1.5 mg/dL [facility] GLUCOSE 144(H) 70 - 99 mg/dL [facility] CALCIUM 9.1 8.4 - 10.3 mg/dL [facility] EGFR >120 >59 mL/min/1.7 3m2 [facility] Comment:Estimated glomerular filtration rate calculated using the CKD-EPI refit equation. ANION GAP 17 10 - 20 mmol/L [facility] Blood 08/11/2021 5:54 AM EDT 08/11/2021 6:01 AM EDT us Chuck Paredes MD LAB BLOOD BKR ORDERABLES F inal Result [address] [phone] from Last 3 Months or Most Recently Relevant to Health Maintenance Insurance [employer] INDEMNITY [employer] NET FULL [employer] INDEMNITY HEALTH SAFETY NET FULL [employer] TOTAL CHOICE INDEMNITY [facility] SAFETY NET FULL [employer] TOTAL CHOICE INDEMNITY HEALTH SAFETY NET FULL [employer] TOTAL CHOICE INDEMNITY [employer] SAFETY NET FULL [employer] TOTAL CHOICE INDEMNITY HEALTH SAFETY NET FULL Member Subscriber Plan / Payer (Ef fective 2022-Present) Name:Xavier Simmslia Relation to Subscriber:Self Name:Clementine Simmsa Payer ID:Not on file Group ID:Not on file Type:Medicaid Address: [place] [id number] [employer] TOTAL CHOICE INDEMNITY [facility] SAFETY NET FULL [employer] TOTAL CHOICE INDEMNITY [facility] SAFETY NET FULL [facility] TOTAL CHOICE INDEMNITY [facility] SAFETY NET FULL Care Teams Supervisor Coke Handling Relationship Specialty Start Date End Date Lulú Painting MD [address] [place] [phone] PCP - General Family Medicine 08/11/21 Additional Source Comments The information contained in this document represents components of the legal health record. It is not the complete legal health record.[facility]
--- OUTSIDE RECORDS SUMMARY | 2025-03-09 07:50 | XMS_ITS | Clinical Summary ---
Author Organization [employer] [facility] Address [address] [place] [address] Care Team Providers Care Licensed Weigher Name Role Phone Unavailable Primary Care Provider [...] Last Done Comments Breast Cancer Screening 1973 Colorectal Cancer Screening: Colonoscopy 1973 DTaP,Tdap,and Td Vaccines (1 - Tdap) 1992 Hepatitis B Vaccines (1 of 3 - 19+ 3-dose series) 1992 Cervical Cancer Screening: P ap Smear 1994 HIV Screening 06/03/2023 Hepatitis C Screening 06/03/2023 Social Influencers of Health Screening 06/03/2023 Pneumococcal Vaccine: 50+ Ye ars (1 of 1 - PCV) 07/19/2023 RSV Immunization Adult Patie nts (1 - Risk 50-74 years 1-dose series) 07/19/2023 Zoster Vaccines (1 of 2) 07/19/2023 Depression Screening 05/04/2024 COVID-19 Vaccine (2023-2 5 season) 2025 Influenza Vaccine (#1) 2025 HIB Vaccines Aged Out No longer eligi [...]
[2025-03-09 07:52] VITALS: BP 118/64
--- NOTE | 2025-03-09 07:52 | A.OFFVIS_ITS ---
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 No complaints. 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 Sexual orientation: Straight/Heterosexual Gender identity: Female Female Reproductive History Menstrual control method: permanent sterilization Menopause type: surgical Total pregnancies: 2 Full term: 2 Number of Living Children: 2 Date of Mammogram: 07/06/24 Review of Systems Const All systems reviewed & are unremarkable except as noted in HPI and below Card Reports as per HPI Resp Reports as per HPI GI Reports as per HPI and Reports no additional complaints Reports as per HPI Physical Exam Vital Signs: Last Vital Signs BP 118/64 03/09/25 07:52 Const General: cooperative, healthy appearing and comfortable Chest Chest palpation & inspection: normal inspection of the chest and normal palpation of entire chest wall Breast/axilla inspection: normal inspection of the breasts and normal inspection of the axillae Breast/axilla palpation: normal palpation of the breasts, normal palpation of the axillae and no axillary lymphadenopathy Resp Effort & Inspection: normal respiratory effort Auscultation: clear to auscultation bilaterally Percussion: percussion normal Cardio Palpation: normal PMI Rate: regular rate Rhythm: regular rhythm Heart sounds: no murmurs and no rubs Peripheral pulses: Peripheral pulses 2+ throughout GI Inspection: Yes normal to inspection Palpation (GI): Soft to palpation, nontender, no guarding, not rigid and No hepatosplenomegaly present Percussion: Yes normal to percussion Auscultation: normal bowel sounds Rectal Exam - Female: deferred General: Yes bladder normal to palpation External Female Exam: No lesion Speculum Exam - Vagina: normal appearance of the vagina, normal palpation, normal vaginal discharge and not erythematous Speculum Exam - Cervix: Cervix absent Bimanual exam- vagina & uterus: normal bimanual exam, normal palpation, bladder normal to palpation and uterus absent Bimanual Exam- Adnexa, other: Other (No pelvic masses) Assessment & Plan Assessment & Plan (1) Well woman exam: Code(s): Z01.419 - Encounter for gynecological examination (general) (routine) without abnormal findings Category: Medical Plan: Co testing not indicated this year. Counseled the patient about the recommended dietary allowance of 1200 mg of Calcium & 600 IU of vitamin D. Instructions given the patient to schedule next screening Mammogram in 07/27. The patient was referred to GI for screening colonoscopy . The patient was instructed to perform monthly self-breast exams and schedule annual exam in a year. All questions answered and the patient verbalized understanding. Orders: Referrals Gastroenterology Referral Z12.11 - Encounter for screening for malignant neoplasm of colon Coding Level of Care Code Est Pt Prev Care 40-64y([id number]) Diagnoses Well woman exam Z01.419
== END 2025-03-09 08:17 | disposition home or self-care (01) ==
LOC: HO.HWS 07:48
PROVIDERS: Visit Provider Obstetrics & Gynecology
DX: Z01.419 Encounter for gynecological examination (general) (routine) without abnormal findings (principal)
CPT/HCPCS: 99396; 99459

== ENCOUNTER 2025-03-16 09:54 | Outpatient (REF) | payer OTHER, MEDICAID, SELFPAY ==
--- OUTSIDE RECORDS SUMMARY | 2025-03-16 09:00 | XMS_ITS | Encounter Summary ---
Author Organization [employer] Address [address] [place] [address] Care Team Providers Care Paper Baling Machine Operator Name Role Phone Lulú Painting MD Primary Care Provider [phone] Reason for Referral * Medications - Closed Specialty Diagnoses / Procedures Referred By Brooke bartholomew Referred To Contact Diagnoses Chronic pain of both knees Lulú Painting MD [address] [place] [address] Phone: tel: fax: Referral ID Status Reason Start Date Expiration Date Visits Re quested Visits Authorized [id number] Closed 1 1 * Medications - Closed Specialty Diagnoses / Procedures Referred By Brooke bartholomew Referred To Contact Diagnoses Type 2 diabetes mellitus with other specified complication, without long-term current use of insulin (HCC) Lulú Painting MD [address] [place] [address] Phone: tel: fax: Referral ID Status Reason Start Date Expiration Date Visits Re quested Visits Authorized [id number] Closed 1 1 Encounter Details Date Type Department Care Team ([facility] st Contact Info) Description 03/16/2025 9:00 AM EST Office Visit [facility] [address] [place] [address] Lulú Painting MD [address] [place] [address] Primary hypertension (Primary Dx); Type 2 diabetes mellitus with other specified complication, without long-term current use of insulin (HCC); GILMA (obstructive sleep apnea); Moderate persistent asthma without complication; Dyslipidemia; Hypertriglyceridemia; Metabolic dysfunction-associate d steatotic liver disease (MASLD); Gastroesophageal reflux disease without esophagitis; History of Tony-en-Y gastric bypass; Multiple falls; Vitamin D deficiency; Chronic pain of both knees Social History Tobacco Use Types Packs/Day Years Used Date Smoking Tobacco: Never Passive Smoke Exposure: Never Smokeless Tobacco: Never Depression Answer Date Recorded Patient Health Questionnaire-9 Score 12 03/16/2025 Patient Health Questionnaire-9 Score 12 03/16/2025 Last PHQ-9: Questionnaire Data Not on file 1 05/16/2024 Housing Stability Answer Date Recorded What is your housing situation today? I have ernstraj jara 03/16/[address] you li ve. Do you have problems with any of the following? None of the above 03/16/2025 Food Insecurity Answer Date Recorded Within the past 12 months, y ou worried that your food would run out before you got money to buy more: Never True 03/16/2025 Within the past 12 months,th e food you bought just didn't last and you didn't have enough money to get more: Never True Transportation Answer Date Recorded In the past 12 months, has l ack of transportation kept you from medical appts, meetings, work or from getting things needed for daily living? No 03/16/2025 Utilities Answer Date Recorded In the past 12 months, has t he electric, gas, oil or water [employer] threatened to shut off services in your home? No 03/16/2025 Depression Answer Date Recorded Patient Health Questionnaire-2 Score 2 03/16/2025 Internet Access Answer Date Recorded Internet Access Q1 Yes 03/16/2025 Internet Access Q2 Not on file 03/16/2025 Comments Unknown Sex and Gender Information Value Date Recorded Sex Assigned at Female 03/03/2022 10:18 AM EDT Legal Sex Female 10:18 AM EDT Gender Identity Female 03/03/2022 10:18 AM EDT Sexual Orientation Straight 03/03/2022 10 :18 AM EDT documented as of this encounter Last Filed Vital Signs Vital Sign Reading Time Taken Comments Blood Pressure 108/80 03/16/2025 9:22 AM EST Pulse 74 03/16/2025 9:22 AM EST Temperature 36.1 C (96.9 F) 03/16/2025 9:22 AM EST Respiratory Rate 17 03/16/2025 9:22 AM EST Oxygen Saturation 94% 03/16/2025 9:22 AM EST Inhaled Oxygen Concentration - - Weight - - Height 154.9 cm (5' 1 ) 03/16/2025 9:22 AM EST Body Mass Index - - documented in this encounter Functional Status * Over the past 2 weeks, how often have you been bothered by any of the following problems? Question Answer Date of Assessment Author Patient Health Questionnaire -2 Score 2 03/16/2025 9:19 AM Apple Flores MA * Little interest or pleasure in doing things Answer Date of Assessment Author Several days 03/16/2025 9:19 AM Roseline Flores MA * Feeling down, depressed, or hopeless Answer Date of Assessment Author Several days 03/16/2025 9:19 AM Roseline Flores MA * Trouble falling or staying asleep, or sleeping too much Answer Date of Assessment Author Several days 03/16/2025 9:19 AM Roseline Flores MA * Feeling tired or having little energy Answer Date of Assessment Author Several days 03/16/2025 9:19 AM Roseline Flores MA * Poor appetite or overeating Answer Date of Assessment Author More than half the days 03/16/2025 9:19 AM EST Roseline Arzate MA * Feeling bad about yourself - or that you are a failure or have let yourself or your family down Answer Date of Assessment Author Several days 03/16/2025 9:19 AM Roseline Flores MA * Trouble concentrating on things, such as reading the newspaper or watching television Answer Date of Assessment Author Nearly every day 03/16/2025 9:19 AM oRseline Flores MA * Moving or speaking so slowly that other people could have noticed? Or the opposite - being so fidgety or restless that you have been moving around a lot more than usual. Answer Date of Assessment Author More than half the days 03/16/2025 9:19 AM Roseline Graff MA * Thoughts that you would be better off or hurting yourself in some way Answer Date of Assessment Author Not at all 03/16/2025 9:19 AM Roseline Flores MA * Patient Health Questionnaire-9 Score Answer Date of Assessment Author 12 03/16/2025 9:19 AM Roseline Flores MA * Over the last 2 weeks, how often have you been bothered by any of the following problems? Question Answer Date of Assessment Author Feeling nervous, anxious, or on edge 2 03/16/2025 9:21 AM Apple Flores MA Not being able to stop or control worrying 1 03/16/2025 9:21 AM Apple Flores MA Worrying too much about different things 2 03/16/2025 9:21 AM Apple Flores MA Trouble relaxing 2 03/16/2025 9:21 AM Roseline Graff MA Being so restless that it is hard to sit still 1 03/16/2025 9:21 AM Apple Flores MA Becoming easily annoyed or irritable 1 03/16/2025 9:21 AM Apple Flores MA Feeling afraid as if somethi ng awful might happen 2 03/16/2025 9:21 AM Apple Flores MA VISHAL-7 Total Score 11 03/16/2025 9:21 AM Roseline Flores MA * How difficult have these problems made it for you to do your work, take care of things at home, or get along with other people? Answer Date of Assessment Author Somewhat difficult 03/16/2025 9:19 AM Roseline Francis MA documented as of this encounter Plan of Treatment Scheduled Orders Name Type Priority Associated Diagnoses Orde r Schedule Vitamin B12 (Cobalamin) and Folate Panel, Serum Lab Routine Type 2 diabetes mellitus with other specified complication, without long-term current use of insulin (HCC) Expected: 03/16/2025 (Approximate), Expires: 03/16/2026 Lipid Panel with Reflex to Direct LDL Lab Routine Type 2 diabetes mellitus with other specified complication, without long-term current use of insulin (HCC) Dyslipidemia Expected: 03/16/2025 (Approximate), Expires: 03/16/2026 Albumin, Random Urine W/Creatinine Lab Routine Type 2 diabetes mellitus with other specified complication, without long-term current use of insulin (HCC) Expected: 03/16/2025 (Approximate), Expires: 03/16/2026 Comprehensive Metabolic Panel Lab Routine Type 2 diabetes mellitus with other specified complication, without long-term current use of insulin (HCC) Expected: 03/16/2025 (Approximate), Expires: 03/16/2026 TSH with Reflex to Free T4 Lab Routine Primary hypertension GILMA (obstructive sleep apnea) Expected: 03/16/2025 (Approximate), Expires: 03/16/2026 Vitamin D, 25-Hydroxy, Total, Immunoassay Lab Routine Vitamin D deficiency Expected: 03/16/2025 (Approximate), Expires: 03/16/2026 documented as of this encounter Goals Goal Patient Goal Type Associated Problems Recent Progress Patient-Stated? Author Help patients manage their type 2 diabetes Care Plan Help patients manage their type 2 diabetes No Roseline Seals MA Weekly blood pressure task Care Plan Weekly blood pressure task No Roseline Seals MA Help patients manage their type 2 diabetes Care Plan Help patients manage their type 2 diabetes Roseline Bolanos MA Patient has chronic kidney disease Care Plan Patient has chronic kidney disease No Roseline Seals MA Weekly blood pressure task Care Plan Weekly blood pressure task No Roseline Seals MA Patient has chronic kidney disease Care Plan Patient has chronic kidney disease Roseline Bolanos MA Weekly blood pressure task Care Plan Weekly blood pressure task No Roseline Seals MA Weekly blood pressure task Care Plan Weekly blood pressure task No Roseline Seals MA Patient has chronic kidney disease Care Plan Patient has chronic kidney disease No Roseline Selas MA Patient has chronic kidney disease Care Plan Patient has chronic kidney disease No Roseline Seals MA documented as of this encounter Procedures Procedure Name Priority Date/Time Associated Diagnosis Comments CBC WITH AUTO DIFFERENTIAL Routine 03/16/2025 9:56 AM EST Multiple falls POCT GLYCOSYLATED HEMOGLOBIN (HGB A1C) Routine 03/16/2025 9:24 AM EST Type 2 diabetes mellitus with other specified complication, without long-term current use of insulin (HCC) POCT GLUCOSE Routine 03/16/2025 9:22 AM EST Type 2 diabetes mellitus with other specified complication, without long-term current use of insulin (HCC) documented in this encounter Results * (ABNORMAL) CBC auto differential (03/16/2025 9:56 AM EST) White Blood Count 7.7 4.8 - 10.8 X10*3/uL [facility] Red Blood Count 4.96 4.20 - 5.50 X10*6/uL [facility] Hemoglobin 12.5 12.0 - 16.0 g/dl [facility] Hematocrit 39.5 37.0 - 47.0 % [facility] Mean Corpuscular Volume 79.6(L) 80.0 - 98.0 fL [facility] Mean Corpuscular Hemoglobin 25.2(L) 27.0 - 33.0 pg [facility] Mean Corpuscular HGB Conc 31.6 31.0 - 35.0 g/dl [facility] Red Cell Distribution Width 14.0 11.0 - 16.0 % [facility] Platelet Count 292 160 - 400 X10*3/uL [facility] Mean Platelet Volume 10.3 9.4 - 12.3 fL [facility] Neutrophils Percent Auto 60.4 45 - 73 % [facility] Imm Gran Pct Auto 0.4 0.0 - 0.4 % [facility] Lymphocytes Percent Auto 30.2 20 - 40 % [facility] Monocytes Percent Auto 6.9 2 - 11 % [facility] Eosinophils Percent Auto 1.2 0 - 4 % [facility] Basophils Percent Auto 0.9 0 - 2 % [facility] NRBC Pct Auto 0.0 0.0 - 0.2 /100WBC [facility] Neutrophils Absolute Auto 4.7 2.0 - 8.3 x10*3/uL [facility] Imm Gran Abs Auto 0.03 0.00 - 0.03 X10*3/uL [facility] Lymphocytes Absolute Auto 2.3 1.2 - 4.9 X10*3/uL [facility] Monocytes Absolute Auto 0.5 0.1 - 1.2 X10*3/uL [facility] Eosinophils Absolute Auto 0.1 0.0 - 0.4 X10*3/uL [facility] Basophils Absolute Auto 0.1 0.0 - 0.2 X10*3/uL [facility] NRBC Abs Auto 0.000 0.0 - 0.012 X10*3/uL [facility] Blood Venous blood specimen / Unknown 03/16/2025 9:56 AM EST 03/16/2025 11:28 AM EST us Lulú Painting MD LAB BLOOD ORDERABLES Final Resul t [facility] [address] [place] [phone] * (ABNORMAL) POCT glycosylated hemoglobin (Hgb A1c) (03/16/2025 9:24 AM EST) Hemoglobin A1C 6.1(A) 4.0 - 5.7 % [employer] Media Lot # [id number] Lot# Expiration Date Blood Capillary blood specimen / Unknown 03/16/2025 9:24 AM EST us Lulú Painting MD POINT OF CARE TEST ENTER/EDIT OR DERABLES Final Result * POCT glucose manually resulted (03/16/2025 9:22 AM EST) Glucose Blood, POC 93 60 - 200 mg/dL [employer] Media Lot # [id number] Lot# Expiration Date 3,026 Blood Capillary blood specimen / Unknown 03/16/2025 9:22 AM EST us Lulú Painting MD POINT OF CARE TEST ENTER/EDIT OR DERABLES Final Result documented in this encounter Visit Diagnoses Diagnosis Primary hypertension- Primary Unspecified essential hypertension Type 2 diabetes mellitus with other specified complication, without long-term current use of insulin (HCC) GILMA (obstructive sleep apnea) Obstructive sleep apnea (adult) (pediatric) Moderate persistent asthma without complication Dyslipidemia Other and unspecified hyperlipidemia Hypertriglyceridemia Pure hyperglyceridemia Metabolic dysfunction-associated steatotic liver disease (MASLD) Gastroesophageal reflux disease without esophagitis Esophageal reflux History of Tony-en-Y gastric bypass Multiple falls Vitamin D deficiency Chronic pain of both knees documented in this encounter Additional Health Concerns Active Problems Noted Date Diagnosed Date Help patients manage their type 2 diabetes 03/15 Weekly blood pressure task 03/15/2025 Help patients manage their type 2 diabetes 03/15 Patient has chronic kidney disease 03/15/2025 Weekly blood pressure task 03/15/2025 Patient has chronic kidney disease 03/15/2025 Weekly blood pressure task 03/15/2025 Weekly blood pressure task 03/15/2025 Patient has chronic kidney disease 03/15/2025 Patient has chronic kidney disease 03/15/2025 Assessment Noted Time PHQ-9 Depression Total Score: 12 025 9:19 AM EST documented as of this encounter Care Teams Paper Baling Machine Operator Relationship Specialty Start Date End Date Lulú Painting MD [address] [place] [id number] PCP - General Family Medicine 11/18/13 documented as of this encounter
[2025-03-16 11:31] LABS: MANUAL DIFF FLAG NO
[2025-03-16 11:38] LABS: Hematocrit 39.5 % (37.0-47.0); Hemoglobin 12.5 g/dl (12.0-16.0); Imm Gran Abs Auto 0.03 X10*3/uL (0.00-0.03); Imm Gran Pct Auto 0.4 % (0.0-0.4); Lymphocytes Absolute Auto 2.3 X10*3/uL (1.2-4.9); Mean Corpuscular HGB Conc 31.6 g/dl (31.0-35.0); Mean Corpuscular Hemoglobin 25.2 pg (27.0-33.0); Mean Corpuscular Volume 79.6 fL (80.0-98.0); NRBC Abs Auto 0.000 X10*3/uL (0.0-0.012); NRBC Pct Auto 0.0 /100WBC (0.0-0.2); Platelet Count 292 X10*3/uL (160-400); Red Blood Count 4.96 X10*6/uL (4.20-5.50); White Blood Count 7.7 X10*3/uL (4.8-10.8)
--- OUTSIDE RECORDS SUMMARY | 2025-03-16 11:46 | XMS_ITS | Encounter Summary ---
Author Organization [employer] Address [address] [place] [address] Care Team Providers Care Tool Clerk Name Role Phone Lulú Painting MD Primary Care Provider [phone] Reason for Visit * Reason Onset Date Comments chart prep 03/15/2025 Encounter Details Date Type Department Care Team ([facility] st Contact Info) Description 03/15/2025 Telephone [facility] [address] [place], [place] [phone] Lulú Painting MD [address] [place], [place] [phone] chart prep Social History Tobacco Use Types Packs/Day Years Used Date Smoking Tobacco: Never Passive Smoke Exposure: Never Smokeless Tobacco: Never Depression Answer Date Recorded Patient Health Questionnaire-9 Score 12 03/16/2025 Patient Health Questionnaire-9 Score 12 03/16/2025 Last PHQ-9: Questionnaire Data Not on file 1 05/16/2024 Housing Stability Answer Date Recorded What is your housing situation today? I have ernst jara 03/16/[address] you [...] Telephone Encounter - Roseline Seals MA - 03/15/2025 8:54 AM EST ..Chart Prep Labs: not applicable Images: graciela (07/12/25) Vaccines due: Covid Due and Flu Due Referrals: Not Applicable Screenings: Colonoscopy , Eye Exam, and Foot Exam Overdue care gaps: A1C, Glucose, Sbirt, SDOH, PHQ9, GAD7, Disability , and Oral Health documented in this encounter Plan of Treatment Not on file documented as of this encounter Goals Goal [...] has chronic kidney disease Roseline Bolanos MA Patient has chronic kidney disease Care Plan Patient has chronic kidney disease Roseline Bolanos MA documented as of this encounter Visit Diagnoses Not on filedocumented in this encounter Additional Health Concerns Active [...] documented as of this encounter Care Teams Tool Clerk Relationship Specialty Start Date End Date Lulú Painting MD [address] [place] [address] PCP - General Family Medicine 11/18/13 documented as of this encounter
--- OUTSIDE RECORDS SUMMARY | 2025-03-16 11:46 | XMS_ITS | Encounter Summary ---
Author Organization [employer] Address [address] [place] [address] 7 [place] [address] Care Team Providers Care Clerical Proofreader Name Role Phone Lulú Painting MD Primary Care Provider [phone] Encounter Details Date Type Department Care Team (Latest Contact Info) Description 03/16/2025 Travel Social History Tobacco Use Types Packs/Day [...] AM EDT documented as of this encounter Functional Status * Over the [...] 03/16/2025 9:19 AM Roseline Graff MA * Feeling bad about yourself - or that you are a failure or have let yourself or your family down Answer Date of Assessment Author Several days 03/16/2025 9:19 AM Roseline Flores MA * Trouble concentrating on things, such as reading the newspaper or watching television Answer Date of Assessment Author Nearly every day 03/16/2025 9:19 AM Roseline Flores MA * Moving or speaking so [...] their type 2 diabetes Roseline Bolanos MA Weekly blood pressure task Care Plan Weekly blood pressure task Roseline Bolanos MA Help patients manage their type 2 [...] chronic kidney disease No Roseline Seals MA Patient has chronic kidney disease Care Plan Patient has chronic kidney disease No Roseline Seals MA documented as of this encounter Visit [...] documented as of this encounter Care Teams Clerical Proofreader Relationship Specialty Start Date End Date Lulú Painting MD [address] [place] [address] PCP - General Family Medicine 11/18/13 documented as of this encounter
--- OUTSIDE RECORDS SUMMARY | 2025-03-16 11:47 | XMS_ITS | Clinical Summary ---
Author Organization [facility] Address [address] [facility] [address] [place] [address] Phone Care Team Providers Care Red Leader Name Role Phone Lulú Painting MD Primary Care Provider [phone] Allergies No known active allergies Medications morphine [...] patient's age to complete this topic IPV VACCINES Aged Out No longer eligi ble [...] EDT) SODIUM 137 133 - 146 mmol/L [facility] CHLORIDE 102 96 - 108 mmol/L [facility] POTASSIUM 4.1 3.3 - 5.1 mmol/L [facility] CO2 22 21 - 35 mmol/L [facility] BUN 17 6 - 19 mg/dL [facility] CREATININE 0.40(L) 0.5 - 1.5 mg/dL [facility] GLUCOSE 144(H) 70 - 99 mg/dL [facility] CALCIUM 9.1 8.4 - 10.3 mg/dL [facility] EGFR >120 >59 mL/min/1.7 3m2 [facility] Comment:Estimated glomerular filtration rate calculated using the CKD-EPI refit equation. ANION GAP 17 10 - 20 mmol/L [facility] Blood 08/11/2021 5:54 AM EDT 08/11/2021 6:01 AM EDT us Chuck Paredes MD LAB BLOOD BKR ORDERABLES F inal Result [facility] [address] [place] [address] from Last 3 Months or Most Recently Relevant to Health Maintenance Insurance [employer] TOTAL CHOICE INDEMNITY [facility] SAFETY NET FULL [employer] TOTAL CHOICE INDEMNITY [employer] S[employer] NET FULL [employer] TOTAL CHOICE INDEMNITY HEALTH SAFETY NET FULL [employer] S[employer] NET FULL [employer] TOTAL CHOICE INDEMNITY [employer] S[employer] NET FULL [employer] TOTAL CHOICE INDEMNITY HEALTH SAFETY NET FULL [employer] TOTAL CHOICE INDEMNITY [facility] SAFETY NET FULL Member Subscriber Plan / Payer (Ef fective 2022-Present) Name:Suma Simms Relation to Subscriber:Self Name:Suma Simms Payer ID:Not on file Group ID:Not on file Type:Medicaid Address: [place] [id number] [employer] TOTAL CHOICE INDEMNITY HEALTH SAFETY NET FULL TOTAL CHOICE INDEMNITY HEALTH SAFETY NET FULL Care Teams Red Leader Relationship Specialty Start Date End Date Lulú Painting MD [address] [place] [id number] PCP - General Family Medicine 08/11/21 Additional Source Comments The information contained in this document represents components of the legal health record. It is not the complete legal health record.[facility]
--- OUTSIDE RECORDS SUMMARY | 2025-03-16 11:47 | XMS_ITS | Encounter Summary ---
Author Organization [employer] Address [address] [place] [address] 7 [place] [address] Care Team Providers Care Desk Representative Name Role Phone Lulú Painting MD Primary Care Provider [phone] Encounter Details Date Type Department Care Team (Latest Contact Info) Description 03/13/2025 Travel Social History Tobacco Use Types Packs/Day [...] documented as of this encounter Care Teams Desk Representative Relationship Specialty Start Date End Date Lulú Painting MD [address] [place] [address] PCP - General Family Medicine 11/18/13 documented as of this encounter
--- OUTSIDE RECORDS SUMMARY | 2025-03-16 11:47 | XMS_ITS | Encounter Summary ---
Author Organization [employer] Address [address] [place] [address] Care Team Providers Care Uppers Edge Burnisher Name Role Phone Lulú Painting MD Primary Care Provider [phone] Reason for Visit * Reason Onset Date Comments Med Refill 08/05/2024 Encounter Details Date Type Department Care Team (Late st Contact Info) Description 08/05/2024 Refill [facility] [facility] [address] [place] [address] Moni Perez MD [address] [place] [address] Chronic pain of both knees Social History [...] documented as of this encounter Care Teams Uppers Edge Burnisher Relationship Specialty Start Date End Date Lulú Painting MD [address] [place] [address] PCP - General Family Medicine 11/18/13 documented as of this encounter
--- OUTSIDE RECORDS SUMMARY | 2025-03-16 11:47 | XMS_ITS | Encounter Summary ---
Author Organization [employer] Address [address] [place] [address] Care Team Providers Care Inspector Cold Working Name Role Phone Lulú Painting MD Primary Care Provider [phone] Encounter Details Date Type Department Care Team ([facility] st Contact Info) Description 10/10/2022 Abstract [facility] [address] [place], [place] [phone] Lulú Painting MD [address] [place] [address] Social History Tobacco Use Types Packs/Day Years [...] Hm Colonoscopy (09/22/2013) Colonoscopy Normal Normal 09/22/2013 Julia Laurent - 10/10/2022 11:35 AM EDT Per [facility] notes from 03/17/2022 patient had normal colonoscopy but unable to find path results [facility] Result - Final documented in this encounter Visit Diagnoses Not on filedocumented in this encounter Additional Health Concerns Assessment Noted Time PHQ-9 Depression Total Score: 7 04/17/20 22 9:30 AM EST documented as of this encounter Care Teams Inspector Cold Working Relationship Specialty Start Date End Date Lulú Painting MD [address] [place] [address] PCP - General Family Medicine 11/18/13 documented as of this encounter
--- OUTSIDE RECORDS SUMMARY | 2025-03-16 11:47 | XMS_ITS | Encounter Summary ---
Author Organization [employer] Address [address] [place] [address] [address] [place] [address] Care Team Providers Care Protection Manager Name Role Phone Lulú Painting MD Primary Care Provider [phone] Encounter Details Date Type Department Care Team ([facility] st Contact Info) Description 02/06/2023 Orders Only [facility] [address] [place], [place] [phone] Lulú Painting MD [address] [place], [place] [phone] Dyslipidemia (Primary Dx) Social History Tobacco Use [...] documented as of this encounter Care Teams Protection Manager Relationship Specialty Start Date End Date Lulú Painting MD [address] [place] [address] PCP - General Family Medicine 11/18/13 documented as of this encounter
--- OUTSIDE RECORDS SUMMARY | 2025-03-16 11:47 | XMS_ITS | Encounter Summary ---
Author Organization [employer] Address [address] [place] [address] Care Team Providers Care Jewelry Engraver Name Role Phone Lulú Painting MD Primary Care Provider [phone] Reason for Visit * Reason Comments Med Change Request Encounter Details Date Type Department Care Team ([facility] st Contact Info) Description 09/09/2022 Refill [facility] [address] [place] [address] Monse Burrell MD [address] [place] [address] Social History Tobacco Use Types Packs/Day Years [...] documented as of this encounter Care Teams Jewelry Engraver Relationship Specialty Start Date End Date Lulú Painting MD [address] [place] [address] PCP - General Family Medicine 11/18/13 documented as of this encounter
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
--- OUTSIDE RECORDS SUMMARY | 2025-03-16 11:47 | XMS_ITS | Clinical Summary ---
Author Organization [facility] ity Address [address] [place] [address] Care Team Providers Care Sausage Stringer Name Role Phone Unavailable Primary Care Provider [...] 2) 07/19/2023 Depression Screening 05/04/2024 COVID-19 Vaccine (2024-2 6 season) 2025 Influenza Vaccine (#1) 2025 HIB [...]
[2025-03-16 12:13] LABS: Alanine Aminotransferase 17 U/L (0-31); Albumin Level 4.2 g/dL (3.5-5.0); Alkaline Phosphatase 85 U/L (39-117); Anion Gap 12 (12-20); Aspartate Amino Transferase 22 U/L (5-31); Blood Urea Nitrogen 17 mg/dL (9-16); Calcium 9.1 mg/dL (8.4-10.2); Carbon Dioxide 24 mmol/L (22-29); Chloride 109 mmol/L (96-108); Cholesterol 213 mg/dL (<200); Estimated Glomerular Filt Rate > 60; HDL Cholesterol 44 mg/dL (>40); Potassium 3.8 mmol/L (3.3-5.1); Sodium 141 mmol/L (135-145); Total Protein 7.3 g/dL (6.5-8.0); Triglycerides 214 mg/dL (<150)
[2025-03-16 12:38] LABS: Microalbum/Creatinine Ratio Ur 9.0 ug/mg cr (<30)
[2025-03-16 12:40] LABS: Folate 5.6 ng/mL (> or = 4.0); Vitamin B12 277 pg/mL (200-900)
[2025-03-16 14:53] LABS: Reflex LDLD? No
== END 2025-03-16 09:55 | disposition home or self-care (01) ==
LOC: HO.HHCL 09:54
PROVIDERS: PCP Family Medicine; Visit Provider Family Medicine
DX: I10 Essential (primary) hypertension (principal); G47.33 Obstructive sleep apnea (adult) (pediatric); E11.69 Type 2 diabetes mellitus with other specified complication; E78.5 Hyperlipidemia, unspecified; R29.6 Repeated falls
CPT/HCPCS: 36415; 80053; 80061; 82043; 82570; 82607; 82746; 84443; 85025

== ENCOUNTER 2025-04-07 14:25 | Outpatient (REF) | payer OTHER, MEDICAID, SELFPAY ==
--- NOTE | ~2025-04-07 | US_ITS ---
EXAMINATION: US KIDNEY BILATERAL HISTORY: Z87.442 - Personal history of urinary calculi TECHNIQUE: Real-time grayscale ultrasound imaging of the kidneys was performed and images were reviewed. COMPARISON: Comparison is made with the prior examination dated 02/11/2024. FINDINGS: Right kidney: The right kidney measures 13.3 x 4.5 x 4.2 cm. Renal parenchymal echotexture and thickness are normal. There are no masses. There is no hydronephrosis or renal calculi. Left Kidney: The left kidney measures 13.4 x 5.0 x 4.3 cm. Renal parenchymal echotexture and thickness are normal. There is a 2.0 x 1.5 x 1.3 cm cyst in the interpolar region. There is no hydronephrosis or renal calculi. US/US renal BI IMPRESSION: 2.0 cm left renal cyst. Otherwise unremarkable renal ultrasound. Electronically signed by: Miguelito Kerr MD 04/07/2025 03:24 PM SILVINA
--- OUTSIDE RECORDS SUMMARY | 2025-04-07 18:33 | XMS_ITS | Clinical Summary ---
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 Performing Organization Address City/[facility] Co de Phone Number [facility] [address] [place] [phone] * TSH with Reflex to Free T4 (03/16/2025 9:56 AM EST) TSH reflex Free T4 1.86 0.32 - 4.0 uIU/mL [facility] Blood 03/16/2025 9:56 AM EST 03/16/2025 11:28 AM EST us Lulú Painting MD LAB BLOOD ORDERABLES Final Resul t Performing Organization Address [facility] Co de Phone Number [facility] [address] [place] [phone] * (ABNORMAL) Lipid Panel with Reflex to Direct LDL (03/16/2025 9:56 AM EST) Triglycerides 214(H) <150 mg/dL [facility] Comment:Desirable Triglyceri de: less than 150 mg/dLBorderline High Triglyceride 150-199 mg/dLHigh Triglyceride: 200-499 mg/dLVery High Triglyceride: greater than or equal to 5OO mg/dL Cholesterol 213(H) <200 mg/dL [facility] Comment:Desirable Cholestero l: less than 200 mg/dLBorderline High Cholesterol: 200-239 mg/dLHigh Cholesterol: greater than 239 mg/dL LDL Cholesterol Calculated 127(H) <100 mg/dL [facility] Comment:Desirable LDL: less than 100 mg/dLNear Optimal/Above Optimal LDL: 110- 129 mg/dLBorderline High LDL: 130-159 mg/dLHigh LDL: 160-189 mg/dLVery High LDL: greater than or equal to 190 mg/dL HDL Cholesterol 44 >40 mg/dL [facility] Comment:Desirable HDL: great er than 40 mg/dL Note: This HDL assay may give artificially low results in patients with liver disease. Blood 03/16/2025 9:56 AM EST 03/16/2025 11:28 AM EST us Lulú Painting MD LAB BLOOD ORDERABLES Final Resul t Performing Organization Address [facility] Co de Phone Number [facility] [address] [place] [phone] * Albumin, Random Urine W/Creatinine (03/16/2025 9:56 AM EST) Creatinine, Urine 143.43 mg/dL [facility] Microalbumin Urine 13.0 mg/L [facility] Microalbum Creatinine Ratio Ur 9.0 <30 ug/mg cr [facility] Comment:Albumin/Creatinine R atio Reference Ranges: Normal: < 30 ug/mg creatinine Microalbuminuria: 30 - 300 ug/mg creatinineClinical Albuminuria: > 300 ug/mg creatinine Urine 03/16/2025 9:56 AM EST 03/16/2025 11:30 AM EST us Lulú Painting MD LAB URINE ORDERABLES Final Resul t Performing Organization Address [facility] Co de Phone Number [facility] [address] [place] [address] [phone] * (ABNORMAL) CBC auto differential (03/16/2025 9:56 AM EST) White Blood Count 7.7 4.8 - 10.8 X10*3/uL [facility] Red Blood Count 4.96 4.20 - 5.50 X10*6/uL [facility] Hemoglobin 12.5 12.0 - 16.0 g/dl [facility] Hematocrit 39.5 37.0 - 47.0 % [facility] Mean Corpuscular Volume 79.6(L) 80.0 - 98.0 fL [facility] Mean Corpuscular Hemoglobin 25.2(L) 27.0 - 33.0 pg [facility] Mean Corpuscular HGB Conc 31.6 31.0 - 35.0 g/dl [facility] Red Cell Distribution Width 14.0 11.0 - 16.0 % [facility] Platelet Count 292 160 - 400 X10*3/uL [facility] Mean Platelet Volume 10.3 9.4 - 12.3 fL [facility] Neutrophils Percent Auto 60.4 45 - 73 % [facility] Imm Gran Pct Auto 0.4 0.0 - 0.4 % [facility] Lymphocytes Percent Auto 30.2 20 - 40 % [facility] Monocytes Percent Auto 6.9 2 - 11 % [facility] Eosinophils Percent Auto 1.2 0 - 4 % [facility] Basophils Percent Auto 0.9 0 - 2 % [facility] NRBC Pct Auto 0.0 0.0 - 0.2 /100WBC [facility] Neutrophils Absolute Auto 4.7 2.0 - 8.3 x10*3/uL [facility] Imm Gran Abs Auto 0.03 0.00 - 0.03 X10*3/uL [facility] Lymphocytes Absolute Auto 2.3 1.2 - 4.9 X10*3/uL [facility] Monocytes Absolute Auto 0.5 0.1 - 1.2 X10*3/uL [facility] Eosinophils Absolute Auto 0.1 0.0 - 0.4 X10*3/uL [facility] Basophils Absolute Auto 0.1 0.0 - 0.2 X10*3/uL [facility] NRBC Abs Auto 0.000 0.0 - 0.012 X10*3/uL [facility] Blood Venous blood specimen / Unknown 03/16/2025 9:56 AM EST 03/16/2025 11:28 AM EST us Lulú Painting MD LAB BLOOD ORDERABLES Final Resul t [facility] [address] [place] [address] [phone] * (ABNORMAL) Comprehensive Metabolic Panel (03/16/2025 9:56 AM EST) Pathologist [facility] Sodium 141 135 - 145 mmol/L [facility] Potassium 3.8 3.3 - 5.1 mmol/L [facility] Chloride 109(H) 96 - 108 mmol/L [facility] Carbon Dioxide 24 22 - 29 mmol/L [facility] Anion Gap 12 12 - 20 [facility] Urea Nitrogen (BUN) 17(H) 9 - 16 mg/dL [facility] Creatinine, Serum 0.57 0.5 - 1.4 mg/dL [facility] Estimated Glomerular Filt Rate >60 [facility] Comment:Chronic Kidney Disea se: Estimated GFR < 60 mL/min/1.96e2Juwpfu Kidney Disease: Estimated GFR < 15 mL/min/1.73m2 Glucose 90 60 - 115 mg/dL [facility] Calcium 9.1 8.4 - 10.2 mg/dL [facility] Bilirubin, Total 0.3 0.0 - 1.0 mg/dL [facility] Aspartate Amino Transferase 22 5 - 31 U/L [facility] Alanine Aminotransferase 17 0 - 31 U/L [facility] Total Protein 7.3 6.5 - 8.0 g/dL [facility] Albumin Level 4.2 3.5 - 5.0 g/dL [facility] Alkaline Phosphatase 85 39 - 117 U/L [facility] Blood Venous blood specimen / Unknown 03/16/2025 9:56 AM EST 03/16/2025 11:28 AM EST us Lulú Painting MD LAB BLOOD ORDERABLES Final Resul t [facility] [address] [place] [address] [phone] * (ABNORMAL) POCT glycosylated hemoglobin (Hgb A1c) (03/16/2025 9:24 AM EST) Hemoglobin A1C 6.1(A) 4.0 - 5.7 % QC Media Lot # [id number] Lot# Expiration Date ,477 Blood Capillary blood specimen / Unknown 03/16/2025 [...] Region Laterality Modality Breast Bilateral Mammography 07/06/2024 8:1 5 AM EST Narrative 07/15/2024 2:57 PM EDT [facility] [place] [address] Mammography Report Signed Patient: Suma Simms MR#: [id number] : 1975 Acct:[id number] Age/Sex: 48 / F ADM Date: 07/06/24 Loc: [facility]ET[facility] Attending Dr: Lulú Painting MD Ordering Physician: Lulú Painting MD Results: 1Negative Date of Service: 07/06/24 Follow Up: 1 Year From Orig inal Mammogram Procedure(s): MM tomosynthesis screening BI Accession Number(s): [id number] cc: Lulú Painting MD EXAMINATION: MM SCREENING [...] 07/15/24 1454 DD/ 0815 TD/TT: 07/06/24 0824 Personal Banking Assistant: Procedure Note Donotuseinterpreter, Image - 07/15/2024 [facility] [address] [place] [address] Mammography Report Signed Patient: Ana Simms#: [id number] : 1975Acct:[id number] Age/Sex: 48 / FADM Date: 07/06/24 Loc: EMMETT Attending Dr: Lulú Painting MD Ordering Physician: Lulú Painting MDResults: 1Negative Date of Service: 07/06/24Follow Up: 1 Year From Orig ina Mammogram Procedure(s): MM tomosynthesis screening BI Accession Number(s): [id number] cc: Lulú Painting MD EXAMINATION: MM SCREENING [...] 07/15/24 1454 DD/ 0815 TD/TT: 07/06/24 0824 Personal Banking Assistant: Lulú Painting MD IMG BI PROCEDURES Final Result * Hepatitis C Ab (06/02/2022 7:47 AM EST) Hepatitis C Antibody Nonreactive Nonreactive [facility] Comment:Antibodies to HCV no t detected; does not exclude early acuteHCV infection. 06/02/2022 7:47 AM EST 06/02/2022 7:47 AM EST [facility] External Provider LAB BLO OD ORDERABLES Final Result [facility] [address] [place] [address] [phone] * HIV Ab/Ag ([facility]) (06/02/2022 7:47 AM EST) HIV AB/AG Nonreactive Nonreactive [facility] Comment:HIV-1 p24 Ag and/or HIV-1/HIV-2 Ab not detected.A test result that is nonreactive does not exclude thepossibility of exposure to or infection with HIV-1 and/orHIV-2. Nonreactive results in this assay for individualswith prior exposure to HIV-1 and/or HIV-2 may be due toantigen and antibody levels that are below the limit ofdetection of this assay.[employer] HIV Ag/Ab Combo assay result andsupplemental assay results should be interpreted inconjunction with the patient's clinical presentation,history and other laboratory results. If the results areinconsistent with clinical evidence, additional testing issuggested to confirm the result. 06/02/2022 7:47 AM EST 06/02/2022 7:47 AM EST [facility] External Provider LAB BLO OD ORDERABLES Final Result Performing Organization Address [facility] Co de Phone Number [facility] [address] [place] [phone] * HPV mRNA E6/E7 w/Reflex to HPV Genotypes 16, 18/45 (05/21/2022 8:10 AM EST) HPV nRNA E6/E7 Not Detected Not Detected [facility] Comment:Methodology: Transcr iption-Mediated AmplificationThis assay detects E6/E7 viral messenger RNA (mRNA) from 14high-risk HPV types (16,18,31,33,35,39,45,51,52,56,58,59,66,68).Cervical sources are required for HPV testing.If a vaginal source from a patient who has had atotal hysterectomy with removal of cervix wassubmitted, please contact the testing laboratoryfor alternative testing options.For additional information, please refer [email or web address] [email or web address]/[email or web address](This link if provided for information/educational purposes only.)THIS TEST WAS PERFORMED AT:[employer] [place] [address] ([address] [phone] WHITTINGTON MD HPV mRNA E6/E7 [facility] HPV 16 RNA [facility] HPV 18/45 RNA [facility] 05/21/2022 8:10 AM EST 05/21/2022 3:30 PM EST [facility] External Provider LAB CYT OLOGY ORDERABLES Final Result Performing Organization Address [facility] Co de Phone Number [facility] [address] [place] [address] [phone] * Pap Smear (05/21/2022 8:10 AM EST) 05/21/2022 8:10 AM EST 05/21/2022 3:30 PM EST Narrative [facility] - 06/02/2022 3:00 PM EST ----- ------- Name: Suma Simms Age/Sex: 46/F : 1975 Unit#: [id number] Attend Dr: Bernardo Willard MD Re05/21/22 Status: DEP [facility] Disch: ----- ------- SPEC : [id number] RECD: 05/21/221530 STATUS: MARY JANE OCONNELL NUM: [id number] RADHA: 05/21/220810 [facility] DR: Bernardo Willard MD ENTERED: 05/21/22-160 SP TYPE: Pap Smr OT DR: Lulú Painting MD ORDERED: Pap Smear [...] 59, 66, 68) HPV testing performed by [facility], [place], [place]. See reference laboratory portion of the EMR for entire report. Clinical Information LMP: Post menopause Previous PAP test: Unknown Material Received ThinPrep-Cervical Copies To: Lulú Painting MD [address] [place] [address] Bernardo Willard MD [address] [place] [address] Dr. Wray [address] [place] [phone] ----- ------- Signed (signature on file) Leah Dunne 06/02/22 1500 ----- ------- END OF REPORT [facility] External Provider LAB [facility] EMI ORDERABLES Final Result [facility] [address] [place] [address] [phone] * Hm Colonoscopy (09/22/2013) Colonoscopy Normal Normal 09/22/2013 Julia Laurent - 10/10/2022 11:35 AM EDT Per [facility] notes from 03/17/2022 patient had normal colonoscopy but unable to find path results us Monique Avila HEALTH MAINTENANCE Edited Result - [...] kidney disease 03/15/2025 Weekly blood pressure task 03/17/2025 Weekly blood pressure task 03/17/2025 Patient has chronic kidney disease 03/17/2025 Patient has chronic kidney disease 03/17/2025 Weekly blood pressure task 03/17/2025 Weekly blood pressure task 03/17/2025 Patient has chronic kidney disease 03/17/2025 Patient has chronic kidney disease 03/17/2025 Weekly blood pressure task 03/17/2025 Weekly blood pressure task 03/17/2025 Patient has chronic kidney disease 03/17/2025 Patient has chronic kidney disease 03/17/2025 Weekly blood pressure task 03/20/2025 Weekly blood pressure task 03/20/2025 Patient has chronic kidney disease 03/20/2025 Patient has chronic kidney disease 03/20/[address] [place] [address] [place] [address] PPO [facility] Care Teams Vehicle Damage Appraiser Relationship Specialty Start Date End Date Lulú Painting MD [address] [place] [phone] PCP - General Family Medicine 11/18/13
--- OUTSIDE RECORDS SUMMARY | 2025-04-07 18:33 | XMS_ITS | Encounter Summary ---
Author Organization [employer] Address [address] [place] [address] [address] [place] [address] Care Team Providers Care Pile Driving Nozzleman Name Role Phone Lulú Paintign MD Primary Care Provider [phone] Encounter Details Date Type Department Care Team ([facility] st Contact Info) Description 02/06/2023 Orders Only [facility] [address] [place], [place] [phone] Lulú Painting MD [address] [place], [place] [phone] Dyslipidemia (Primary Dx) Social History Tobacco Use [...] documented as of this encounter Care Teams Pile Driving Nozzleman Relationship Specialty Start Date End Date Lulú Painting MD [address] [place] [address] PCP - General Family Medicine 11/18/13 documented as of this encounter
--- OUTSIDE RECORDS SUMMARY | 2025-04-07 18:33 | XMS_ITS | Encounter Summary ---
Author Organization [employer] Address [address] [place] [address] Care Team Providers Care Medical Administrative Technician Name Role Phone Lulú Painting MD Primary Care Provider [phone] Reason for Visit * Reason Onset Date Comments Med Refill 08/05/2024 Encounter Details Date Type Department Care Team (Late st Contact Info) Description 08/05/[address] [facility] MEDICINE [address] [place] [address] Moni Perez MD [address] [place] [address] Chronic pain of both knees Social History [...] documented as of this encounter Care Teams Medical Administrative Technician Relationship Specialty Start Date End Date Lulú Painting MD [address] [place] [address] PCP - General Family Medicine 11/18/13 documented as of this encounter
--- OUTSIDE RECORDS SUMMARY | 2025-04-07 18:33 | XMS_ITS | Clinical Summary ---
Author Organization [facility] Address [address] [place] [phone] Phone Care Team Providers Care Senior Policy Advisor Name Role Phone Lulú Painting MD Primary Care Provider [phone] Allergies No known active allergies Medications morphine [...] EDT) SODIUM 137 133 - 146 mmol/L [facility] CHLORIDE 102 96 - 108 mmol/L [facility] POTASSIUM 4.1 3.3 - 5.1 mmol/L [facility] CO2 22 21 - 35 mmol/L [facility] BUN 17 6 - 19 mg/dL [facility] CREATININE 0.40(L) 0.5 - 1.5 mg/dL [facility] GLUCOSE 144(H) 70 - 99 mg/dL [facility] CALCIUM 9.1 8.4 - 10.3 mg/dL [facility] EGFR >120 >59 mL/min/1.7 3m2 [facility] Comment:Estimated glomerular filtration rate calculated using the CKD-EPI refit equation. ANION GAP 17 10 - 20 mmol/L [facility] Blood 08/11/2021 5:54 AM EDT 08/11/2021 6:01 AM EDT us Chuck Paredes MD LAB BLOOD BKR ORDERABLES F inal Result [address] [address] from Last 3 Months or Most Recently Relevant to Health Maintenance Insurance [employer] TOTAL CHOICE INDEMNITY [employer] NET FULL [employer] TOTAL CHOICE INDEMNITY HEALTH SAFETY NET FULL [employer] TOTAL CHOICE INDEMNITY [facility] SAFETY NET FULL [employer] TOTAL CHOICE INDEMNITY HEALTH SAFETY NET FULL [employer] TOTAL CHOICE INDEMNITY [employer] SAFETY NET FULL [employer] TOTAL CHOICE INDEMNITY HEALTH SAFETY NET FULL Member Subscriber Plan / Payer (Ef fective 2022-Present) Name:Xavier Simmslia Relation to Subscriber:Self Name:Clementine Simmsa Payer ID:Not on file Group ID:Not on file Type:Medicaid Address: [place] [id number] [employer] TOTAL CHOICE INDEMNITY [facility] SAFETY NET FULL [employer] TOTAL CHOICE INDEMNITY [facility] SAFETY NET FULL [facility] TOTAL CHOICE INDEMNITY [facility] SAFETY NET FULL Care Teams Senior Policy Advisor Relationship Specialty Start Date End Date Lulú Painting MD [address] [place] [phone] PCP - General Family Medicine 08/11/21 Additional Source Comments The information contained in this document represents components of the legal health record. It is not the complete legal health record.[facility]
--- OUTSIDE RECORDS SUMMARY | 2025-04-07 18:33 | XMS_ITS | Clinical Summary ---
Author Organization [facility] ity Address [address] [place] [address] Care Team Providers Care Assembler Billiard Table Name Role Phone Unavailable Primary Care Provider [...]
--- OUTSIDE RECORDS SUMMARY | 2025-04-07 18:33 | XMS_ITS | Encounter Summary ---
Author Organization [employer] Address [address] [place] [phone] Care Team Providers Care Cattle Knocker Name Role Phone Lulú Painting MD Primary Care Provider [phone] Encounter Details Date Type Department Care Team ([facility] st Contact Info) Description 10/10/2022 Abstract [facility] MEDICINE [address] [place], [place] [phone] Lulú Painting MD [address] [place] [address] Social History Tobacco Use Types Packs/Day Years [...] Laurent - 10/10/2022 11:35 AM EDT Per [facility] notes from 03/17/2022 patient had normal colonoscopy but unable to find path results [facility] Result - Final documented in this encounter Visit Diagnoses Not on filedocumented in this encounter Additional Health Concerns Assessment Noted Time PHQ-9 Depression Total Score: 7 04/17/20 22 9:30 AM EST documented as of this encounter Care Teams Cattle Knocker Relationship Specialty Start Date End Date Lulú Painting MD [address] [place] [address] PCP - General Family Medicine 11/18/13 documented as of this encounter
--- OUTSIDE RECORDS SUMMARY | 2025-04-07 18:33 | XMS_ITS | Encounter Summary ---
Author Organization [employer] Address [address] [place] [address] Care Team Providers Care Minute Clerk Name Role Phone Lulú Painting MD Primary Care Provider [phone] Reason for Visit * Reason Comments Med Change Request Encounter Details Date Type Department Care Team ([facility] st Contact Info) Description 09/09/2022 Refill [facility] MEDICINE [address] [place] [address] Monse Burrell MD [address] [place] [address] Social History Tobacco Use Types Packs/Day Years [...] documented as of this encounter Care Teams Minute Clerk Relationship Specialty Start Date End Date Lulú Painting MD [address] [place] [address] PCP - General Family Medicine 11/18/13 documented as of this encounter
== END 2025-04-07 14:26 | disposition home or self-care (01) ==
LOC: HO.US 14:25
PROVIDERS: Visit Provider Urology
DX: Z87.442 Personal history of urinary calculi (principal)
CPT/HCPCS: 76775

== ENCOUNTER → 2025-04-07 14:32 | Outpatient (BNV) | payer OTHER, MEDICAID, SELFPAY | PROVIDERS: Visit Provider Radiology Diagnostic Radiology | DX: N28.1 Cyst of kidney, acquired (principal); Z87.442 Personal history of urinary calculi | CPT/HCPCS: 76775 ==